=== PATIENT | male | born 1955 | race Caucasian/White ===

== ENCOUNTER 2025-03-11 10:23 | Inpatient (IN) ==
--- NOTE | 2025-03-11 11:27 | Emergency Department Note ---
Impression & Plan Abscess of right hand, Tenosynovitis, Cat bite, Failure of outpatient treatment ED Provider Note NAME: RY GIRON AGE: 69 SEX: M : 1955 ARRIVES VIA: Walk-In INFORMANT: [Patient] ED PROVIDER(S): [Kurt Power MD] CHIEF COMPLAINT: Hand pain HISTORY OF PRESENT ILLNESS: The patient is a 69-year-old male who states that 9 days ago, he was bitten by a cat along the dorsum of the right hand. [facility] went to [facility] and was placed on Augmentin and given a tetanus booster. The 1 area of the bite has cleared up nicely however, the right fourth dorsal MCP region is draining puslike material and is erythematous. There is some pain with movement of the fourth MCP and with extension of the fourth finger. The patient went to the [facility] today, he was referred to our ER. There has been no fever, no cough or congestion. The patient is not a diabetic. PMHx/PSHx/Social Hx: See Below PHYSICAL EXAM: GENERAL: Patient is in no acute distress. HEENT: No acute trauma, normocephalic atraumatic, mucous membranes moist, no nasal congestion. EXTREMITIES: No cyanosis. The patient has erythema and swelling over the dorsal fourth MCP. There is an open lesion that is draining puslike material. There is some pain to move the fourth MCP joint and to extend the right fourth finger. No evidence for distal right fourth finger neurovascular compromise. NEUROLOGIC: Oriented x 3, no acute motor or sensory deficits, no focal weakness. DIFFERENTIAL DIAGNOSIS: Abscess, septic joint, tenosynovitis, failed outpatient management, among others. EMERGENCY DEPARTMENT PROCEDURES: MEDICAL DECISION MAKING: There is a mild leukocytosis, this would be consistent with infection. There is a normal hemoglobin and platelet count. No true bandemia. No renal failure or significant electrolyte abnormality. No concerning liver enzyme elevation. Right hand CT shows a 5 cm abscess and what appeared to be a tenosynovitis. On exam, there was erythema of the right fourth MCP with some drainage. A culture was obtained. The patient received IV Unasyn as antibiotic therapy. I spoke to orthopedics. The patient will be hospitalized for IV antibiotic therapy and an OR washout this evening. He is to be n.p.o. until this evening. I did speak with the patient and case management. The on-call hospitalist was consulted. Prior/Outside records/notes reviewed: None Imaging/x-ray results per my interpretation: Chronic Medical/Social conditions affecting care: None Care/Management discussed with: Orthopedics-Dr. Ashford. Case management and the on-call hospitalist. Level of care consideration(s): After review of the information above and other included data: --I believe the patient requires escalation of care to admission DISPOSITION: Admission Past Med/Surg History Problem List (Updated 03/11/25 @ 13:58 by Kurt Power MD) Failure of outpatient treatment (Acute) Cat bite (Acute) Tenosynovitis (Acute) Abscess of right hand (Acute) Abscess of right hand Cellulitis of right hand Medical History Cat bite Social History Smoking Status: Never smoker Preferred Language: Trinidadian Feels Safe at Home: Yes Allergies Allergies Allergy/AdvReac Type Severity Reaction Status Date / Time No Known Allergies Allergy Unknown Unverified 10/07/07 09:19 Home Meds Home Medications Medication Instructions Recorded Confirmed Bupropion (Wellbutrin Sr) 150 mg PO DAILY ##0 10/07/07 Hydrocodone/Ibuprofen (Vicoprofen 1 tab PO 4HRS ##0 10/07/07 7.5/200MG ) Lisinopril (Zestril) 20 mg PO DAILY ##0 10/07/07 Results & Data (ED) Vital Signs Vital Signs - 24 hr 03/11/25 10:38 03/11/25 12:13 Temperature 36.4 C L Temperature Source Skin Pulse Rate 73 Pulse Rate [Finger] 69 Respiratory Rate 17 18 Respiratory Effort / Characteristics Non-Labored Spontaneous Non-Labored Spontaneous Respiratory Depth Normal Normal Respiratory Pattern Regular Regular Blood Pressure 107/65 Blood Pressure [Right Arm] 117/79 Blood Pressure Mean 79 Blood Pressure Mean [Right Arm] 91 Blood Pressure Position [Right Arm] Sitting Pulse Oximetry 97 97 Oxygen Delivery Method Room Air Room Air Sepsis Recent Fever Within 48 Hours No Sepsis New/Unexplained Change in Mental Status N/A Sepsis Action Taken by Nursing No Action Required Home Medications Current Medication List: was personally reviewed by me Laboratory Data Attestation: I reviewed the patient's lab results. 03/11/25 11:32 03/11/25 11:32 Lab Results 03/11/25 Range/Units 11:32 WBC 13.58 H (4.8-10.8) K/ul RBC 4.40 L (4.70-6.10) M/uL Hgb 14.7 (14.0-18.0) g/dl Hct 43.0 (42.0-52.0) % MCV 97.7 (80.0-100.0) fL MCH 33.4 (25.0-34.0) pg MCHC 34.2 (32.0-36.0) g/dL RDW Std Deviation 44.3 (36.4-46.3) fL RDW Coeff of Steve 12.2 (11.5-14.5) % Plt Count 301 (130-400) K/uL MPV 9.6 (9.4-12.4) fL Immature Gran % (Auto) 0.4 % Neut % (Auto) 67.1 % Lymph % (Auto) 17.7 % Clinton % (Auto) 7.1 % Eos % (Auto) 7.4 % Baso % (Auto) 0.3 % Neut # (Auto) 9.11 H (1.40-6.50) K/uL Lymph # (Auto) 2.41 (1.20-3.40) K/uL Clinton # (Auto) 0.97 H (0.11-0.59) K/uL Eos # (Auto) 1.00 H (0.00-0.50) K/uL Baso # (Auto) 0.04 (0.00-0.20) K/uL Immature Gran # (Auto) 0.05 (0.01-0.20) K/uL Sodium 137 (136-145) mmol/L Potassium 3.9 (3.5-5.1) mmol/L Chloride 103 (98-107) mmol/L Carbon Dioxide 30 (21-32) mmol/L Anion Gap 4 (3-11) BUN 14 (6-23) mg/dl Creatinine 0.89 (0.6-1.4) mg/dl Est Cr Clr Drug Dosing 80.6 ml/min eGFR 92.76 BUN/Creatinine Ratio 15.7 (10-20) Glucose 92 (70-99(Fasting)) mg/dl Calcium 9.3 (8.6-10.3) mg/dl Total Bilirubin 0.5 (0.2-1.0) mg/dl AST 20 (13-39) U/L ALT 12 (7-52) U/L Alkaline Phosphatase 83 (34-104) U/L Total Protein 6.9 (6.0-8.3) gm/dl Albumin 3.9 (3.4-5.0) gm/dl Globulin 3.0 (2.5-4.0) gm/dl Albumin/Globulin Ratio 1.3 (0.9-2) Administered Medications Discontinued Medications Ampicillin Sodium/Sulbactam Sodium (Unasyn) 3,000 mg in 100 mls @ 200 mls/hr IV NOW STA Stop: 03/11/25 11:52 Last Infusion: 03/11/25 12:12 Dose: Infused Documented By: Admin: 03/11/25 11:35 Dose: 200 mls/hr Documented By: TEGAN Ioversol (Optiray 320 100ml) 94 ml IV ONCE ONE Stop: 03/11/25 12:27 Last Admin: 03/11/25 12:26 Dose: 94 ml Documented By: MAME Imaging Data Radiologist's Impression: Hand CT 03/11/25 11:23 CT hand RT w con HISTORY: 69 years-old Male poss abscess dorsal 4th mcp acute right hand pain with possible soft tissue infection and abscess COMPARISON: None TECHNIQUE: Multiple axial CT images of the right hand were obtained with IV contrast. A dose lowering technique was used consistent with the principals of JOE. FINDINGS: Multifocal osteoarthritis, severe within the first carpal metacarpal joint in otherwise predominantly mild to moderate. Healed chronic chest metacarpal fracture deformity. No acute fracture, dislocation or osseous erosion. Tendons and ligaments are not well evaluated by CT technique. Moderate subcutaneous edema is most pronounced dorsally. Ill-defined peripherally enhancing fluid collection is noted along the dorsal aspect of the fourth metacarpal and fourth metacarpophalangeal joint (image 25 series 3 image 64 series 303) measuring 2.0 x 0.8 x 5.0 cm. This appears to involve the fourth extensor compartment. IMPRESSION: 1. Cellulitis with 5 cm probable abscess of the dorsal hand with involvement of the fourth extensor compartment suggestive of associated infectious tenosynovitis. 2. Osteoarthritis without acute osseous abnormality. ACT 112: Negative or not required by law. The above report was generated using voice recognition software. It may contain grammatical, syntax or spelling errors. Electronically signed by: Mendez Avitia M.D. 03/11/2025 1:07 PM Discharge Plan Visit Data Chief Complaint: Hand Injury/Pain Stated Complaint: BIT BY CAT ON R HAND 1 WK AGO ED Provider: Kurt Power Discharge Problem: Abscess of right hand, Tenosynovitis, Cat bite, Failure of outpatient treatment Patient Disposition: Admitted As Inpatient Condition: Good Forms Stand Alone Forms: My [facility] Referrals Referrals: Kelechi Driver M.D. [Staff Physician] - Discharge Problem: Cat bite Qualifiers: Encounter type: subsequent encounter Qualified Code(s): W55.01XD - Bitten by cat, subsequent encounter
[2025-03-11] MEDS: AMPICILLIN/SULBACTAM SOD 3,000 MG/100 ML BAG IV STA (11:35)
[2025-03-11 11:56] LABS: Hematocrit (blood only) 43.0 % (42.0-52.0); Hemoglobin 14.7 g/dl (14.0-18.0); Immature Granulocytes # (auto) 0.05 K/uL (0.01-0.20); Immature Granulocytes % (auto) 0.4 %; Mean Corpuscular Hemoglobin 33.4 pg (25.0-34.0); Mean Corpuscular Volume 97.7 fL (80.0-100.0); Platelet Count 301 K/uL (130-400); RDW Standard Deviation 44.3 fL (36.4-46.3); Red Blood Count 4.40 M/uL (4.70-6.10); White Blood Count 13.58 K/ul (4.8-10.8)
[2025-03-11 12:17] LABS: Alanine Aminotransferase 12.0 U/L (7-52); Albumin Globulin Ratio 1.3 (0.9-2); Albumin Level 3.9 gm/dl (3.4-5.0); Alkaline Phosphatase 83.0 U/L (34-104); Anion Gap 4.0 (3-11); Bilirubin,Total 0.5 mg/dl (0.2-1.0); Blood Urea Nitrogen 14.0 mg/dl (6-23); Calcium 9.3 mg/dl (8.6-10.3); Carbon Dioxide 30.0 mmol/L (21-32); Chloride 103.0 mmol/L (98-107); Creatinine Clr Calc Pharmacy 80.6 ml/min; Globulin 3.0 gm/dl (2.5-4.0); Glucose 92.0 mg/dl (70-99(Fasting)); Potassium 3.9 mmol/L (3.5-5.1); Sodium 137.0 mmol/L (136-145); Total Protein 6.9 gm/dl (6.0-8.3)
[2025-03-11] MEDS: OPTIRAY 320 100ml IV ONE (12:26)
--- NOTE | 2025-03-11 13:09 | CT Scan Report ---
CT hand RT w con HISTORY: 69 years-old Male poss abscess dorsal 4th mcp acute right hand pain with possible soft tiss ue infection and abscess COMPARISON: None TECHNIQUE: Multiple axial CT images of the right hand were obtained with IV contrast. A dose lowering technique was used consistent with the principals of JOE. FINDINGS: Multifocal osteoarthritis, severe within the first carpal metacarpal joint in otherwise predominantly mild to moderate. Healed chronic chest metacarpal fracture deformity. No acute fracture, dislocation or osseous erosion. Tendons and ligaments are not well evaluated by CT technique. Moderate subcutaneous edema is most pro nounced dorsally. Ill-defined peripherally enhancing fluid collection is noted along the dorsal aspec t of the fourth metacarpal and fourth metacarpophalangeal joint (image 25 series 3 image 64 series 30 3) measuring 2.0 x 0.8 x 5.0 cm. This appears to involve the fourth extensor compartment. IMPRESSION: 1. Cellulitis with 5 cm probable abscess of the dorsal hand with involvement of the fourth extensor c ompartment suggestive of associated infectious tenosynovitis. 2. Osteoarthritis without acute osseous abnormality. ACT 112: Negative or not required by law. The above report was generated using voice recognition software. It may contain grammatical, syntax o r spelling errors. Electronically signed by: Mendez Avitia M.D. 03/11/2025 1:07 PM
--- NOTE | 2025-03-11 13:33 | Anesthesiology Consultation ---
Date of Service March 11, 2025 Assessment & Plan Chart Review Chart Review: Acceptable Risk for Surgery and Patient NOT seen in Pre Admission Testing Consults Requested none ASA [id number] Proposed Anesthesia Anesthesia Type: General History Surgery Operation Date: 03/11/25 12:00 Proposed Procedures p Right Hand Incision and Drainage - Huber Ashford DO Height/Weight Height: 5 ft 4 in Weight: 93 kg Allergies Allergy/AdvReac Type Severity Reaction Status Date / Time No Known Allergies Allergy Unknown Unverified 10/07/07 09:19 Medications Home Medications Medication Instructions Recorded Confirmed Last Taken Bupropion (Wellbutrin Sr) 150 mg PO DAILY ##0 10/07/07 Unknown Hydrocodone/Ibuprofen (Vicoprofen 1 tab PO 4HRS ##0 10/07/07 Unknown 7.5/200MG ) Lisinopril (Zestril) 20 mg PO DAILY ##0 10/07/07 Unknown Past Medical History obese KEVIN HTN PTSD Anxiety/Depression HLD Exercise / Class Metabolic Activity II 4-5 Yardwork/Stairs/Walk up hill Past Anesthesia History No Hx of Anesthesia Complications and No Family Hx of Anesthesia Complications History of PONV No Hx of PONV and No Hx of Motion Sickness Social History Smoking Status: Never smoker Physical Exam Vital Signs Last Vital Signs Temp 36.4 C L 03/11/25 10:38 Pulse 69 03/11/25 12:13 Resp 18 03/11/25 12:13 BP 117/79 03/11/25 12:13 Pulse Ox 97 03/11/25 12:13 O2 Del Method Room Air 03/11/25 12:13 Testing Laboratory Results 03/11/25 11:32 03/11/25 11:32 03/11/25 Unknown Gram Stain - Final Hand,Right
--- NOTE | 2025-03-11 13:35 | History & Physical Report ---
Date of Service March 11, 2025 Assessment & Plan (1) Cellulitis of right hand: (2) Abscess of right hand: (3) Cat bite: Plan: Patient is 69-year-old male with PMH HTN, HLD, prediabetes, reactive airway, KEVIN, PTSD, chronic pain, obesity presented to ER with c/o Right hand redness. Patient reports his cat bite his right hand 9 days ago, failed outpatient course of Augmentin In ER afebrile, vital stable. WBC: 13.5 with left shift Right CT hand: 1. Cellulitis with 5 cm probable abscess of the dorsal hand with involvement of the fourth extensor compartment suggestive of associated infectious tenosynovitis. 2. Osteoarthritis without acute osseous abnormality. In ER given Unasyn Wound culture pending Keep NPO for likely surgical procedure later today Ortho consult, ER physician spoke to Dr Ashford who recommended NPO for OR later today CBC, BMP in am (4) HTN (hypertension): Plan: Hold tomorrow dose HCTZ. Resume if BP allows Continue amlodipine, lisinopril, metoprolol tartrate with holding parameters (5) HLD (hyperlipidemia): Plan: Continue atorvastatin (6) Reactive airway disease: Plan: No signs exacerbation Continue home inhalers (7) KEVIN (obstructive sleep apnea): Plan: CPAP HS (8) Chronic pain: Plan: Continue gabapentin, baclofen DVT Prophylaxis SCDs for now as pending surgery Admit med surg Full Code as per discussion with pt Follows with [facility] for routine care Pt was seen and care coordinated with Dr Gomez. See addendum I spent a total of 65 minutes reviewing notes, outpatient records, labs, medication, coordinating, documenting and providing care for this patient excluding time spent in the performance of separately billed services and excluding time spent by another provider/QHP. History of Present Illness Primary Care Provider: Marc Nieto DO Patient is 69-year-old male with PMH HTN, HLD, prediabetes, reactive airway, KEVIN, PTSD, chronic pain, obesity presented to ER with c/o Right hand redness. Patient reports his cat bite his right hand 9 days ago. Reports was seen at [facility] 8 days ago and started on Augmentin. He states he filled out animal bite form there. He reports his cat up to date on vaccines. He states his tetanus booster was updated 8 days ago. Patient reports hand does not seem to be improving and having pain, redness and noted purulent drainage. Last ate yesterday afternoon. Did not have home meds today. Denies fever/chills, diaphoresis, N/V/D/C, SEGUNDO, dizziness, CP, SOB, cough, sore throat, rhinorrhea, abdominal pain, paresthesias, lower extremity edema, other rashes, urinary symptoms. Allergies Allergy/AdvReac Type Severity Reaction Status Date / Time No Known Allergies Allergy Unknown Unverified 10/07/07 09:19 Home Medications Medication Instructions Recorded Confirmed Type albuterol sulfate 90 mcg/actuation 2 puff inhalation Q4H PRN 03/11/25 03/11/25 History aerosol inhaler sob/cough/wheeze amlodipine 2.5 mg tablet 2.5 mg PO DAILY 03/11/25 03/11/25 History aripiprazole 5 mg tablet 5 mg PO HS 03/11/25 03/11/25 History aspirin 81 mg tablet,delayed 81 mg PO DAILY 03/11/25 03/11/25 History release atorvastatin 80 mg tablet 80 mg PO HS 03/11/25 03/11/25 History baclofen 10 mg tablet 10 mg PO HS 03/11/25 03/11/25 History carboxymethylcellulose sodium 0.5 1 drp ophthalmic (eye) BID 03/11/25 03/11/25 History % eye drops cholecalciferol (vitamin D3) 25 25 mcg PO DAILY 03/11/25 03/11/25 History mcg (1,000 unit) tablet cyanocobalamin (vitamin B-12) 1,000 mcg IM MONTHLY 03/11/25 03/11/25 History 1,000 mcg/mL injection solution diclofenac sodium 1 % topical gel 2 g topical QID 03/11/25 03/11/25 History donepezil 5 mg tablet 5 mg PO BID 03/11/25 03/11/25 History doxylamine succinate 25 mg tablet 25 mg PO HS PRN Sleep 03/11/25 03/11/25 History fish oil-dha-epa 1,000 mg PO DAILY 03/11/25 03/11/25 History fluticasone 500 mcg-salmeterol 50 1 inh inhalation BID 03/11/25 03/11/25 History mcg/dose blistr powdr for inhalation fluticasone propionate 50 2 spray intranasal DAILY 03/11/25 03/11/25 History mcg/actuation nasal spray,suspension gabapentin 300 mg capsule 300 mg PO BID 03/11/25 03/11/25 History gabapentin 300 mg capsule 600 mg PO HS 03/11/25 03/11/25 History hydrochlorothiazide 25 mg tablet 12.5 mg PO DAILY 03/11/25 03/11/25 History lisinopril 40 mg tablet 40 mg PO DAILY 03/11/25 03/11/25 History meloxicam 15 mg tablet 15 mg PO DAILY PRN Other 03/11/25 03/11/25 History metoprolol tartrate 25 mg tablet 12.5 mg PO BID 03/11/25 03/11/25 History multivitamin 1 tab PO DAILY 03/11/25 03/11/25 History prazosin 1 mg capsule 1 mg PO HS 03/11/25 03/11/25 History semaglutide (weight loss) 1.7 1.7 mg subcut Q7D 03/11/25 03/11/25 History mg/0.75 mL subcutaneous pen injector terbinafine HCl 1 % topical cream 1 applic topical BID 03/11/25 03/11/25 History triamcinolone acetonide 0.025 % 1 applic topical UD PRN Other 03/11/25 03/11/25 History topical cream urea 20 % topical cream 1 applic topical DAILY PRN Dry Skin 03/11/25 03/11/25 History venlafaxine 75 mg tablet 225 mg PO DAILY 03/11/25 03/11/25 History Past Med/Surg History Problem List Failure of outpatient treatment (Acute) Cat bite (Acute) Tenosynovitis (Acute) Abscess of right hand (Acute) Abscess of right hand Cellulitis of right hand Medical History PTSD (post-traumatic stress disorder) Chronic pain KEVIN (obstructive sleep apnea) Reactive airway disease HLD (hyperlipidemia) HTN (hypertension) Cat bite Surgical History History of cataract surgery History of surgery right index finger surgery Family History Brother Cancer Social History Smoking Status: Never smoker Hx Alcohol Use: No Hx Substance Use: No Preferred Language: Portuguese Communication Ability: Effective Equal Opportunity Specialist Required: No Beliefs That Will Affect Care: None Current Living Situation: Spouse Feels Safe at Home: Yes Assistive Devices: Hearing Aid - Bilateral Review of Systems Review of Systems: All systems reviewed & are unremarkable except as noted in HPI & below Physical Exam Physical Exam: General: no distress, obese Head: normocephalic, atraumatic Eyes: conjunctiva non-injected, anicteric ENT: normal inspection external ears, nose, mucous membranes moist Neck: supple, trachea midline, non-tender Lungs: clear, no respiratory distress, no wheezing/rhonchi/rales CV: RRR, no murmur, no pretibial edema Abd: normal BS, soft, non-tender Ext: no cyanosis, no calf tenderness. Right hand/fingers : +erythema and edema dorsal hand and 4th finger. +open wound purulent drainage with palpation. Neuro: A&O x 3, no focal deficits noted, normal affect Skin: as above ext, otherwise warm, dry Results & Data Results & Data Vital Signs (Past 12 Hours) Vital Signs Temp Pulse Pulse Resp BP BP Pulse Ox 03/11/25 12:13 69 18 117/79 97 03/11/25 10:38 36.4 C L 73 17 107/65 97 O2 Del Method 03/11/25 12:13 Room Air 03/11/25 10:38 Room Air Laboratory Results Short CBC 03/11/25 Range/Units 11:32 WBC 13.58 H (4.8-10.8) K/ul Hgb 14.7 (14.0-18.0) g/dl Hct 43.0 (42.0-52.0) % Plt Count 301 (130-400) K/uL BMP 03/11/25 11:32 Sodium 137 Potassium 3.9 Chloride 103 Carbon Dioxide 30 BUN 14 Creatinine 0.89 Glucose 92 Calcium 9.3 Liver Function 03/11/25 Range/Units 11:32 Total Bilirubin 0.5 (0.2-1.0) mg/dl AST 20 (13-39) U/L ALT 12 (7-52) U/L Alkaline Phosphatase 83 (34-104) U/L Albumin 3.9 (3.4-5.0) gm/dl Diagnostic Findings Hand CT 03/11/25 11:23 CT hand RT w con HISTORY: 69 years-old Male poss abscess dorsal 4th mcp acute right hand pain with possible soft tissue infection and abscess COMPARISON: None TECHNIQUE: Multiple axial CT images of the right hand were obtained with IV contrast. A dose lowering technique was used consistent with the principals of JOE. FINDINGS: Multifocal osteoarthritis, severe within the first carpal metacarpal joint in otherwise predominantly mild to moderate. Healed chronic chest metacarpal fracture deformity. No acute fracture, dislocation or osseous erosion. Tendons and ligaments are not well evaluated by CT technique. Moderate subcutaneous edema is most pronounced dorsally. Ill-defined peripherally enhancing fluid collection is noted along the dorsal aspect of the fourth metacarpal and fourth metacarpophalangeal joint (image 25 series 3 image 64 series 303) measuring 2.0 x 0.8 x 5.0 cm. This appears to involve the fourth extensor compartment. IMPRESSION: 1. Cellulitis with 5 cm probable abscess of the dorsal hand with involvement of the fourth extensor compartment suggestive of associated infectious tenosynovitis. 2. Osteoarthritis without acute osseous abnormality. ACT 112: Negative or not required by law. The above report was generated using voice recognition software. It may contain grammatical, syntax or spelling errors. Electronically signed by: Mendez Avitia M.D. 03/11/2025 1:07 PM Supervising Physician Co-Signing Physician Notes Attending addendum: The patient was seen and examined in medical floor in presence of the family members He is status post right hand incision and drainage right hand with history of cat bite 9 days ago with abscess formation He has been feeling much better following the procedure and complains of minimal pain Denies any other significant symptoms On examination Lying in bed without any acute distress Afebrile and remains hemodynamically stable. Chestclear to auscultate bilaterally HeartS1-S2 regular Abdomenbenign Extremitiesno edema Examination of the right upper extremity showed left hand is in bandages with good sensation and fingers and can move the fingers His admission labs and imaging studies reviewed Noted to have cellulitis with 5 cm abscess without any evidence of osteomyelitis but showed tenosynovitis Status post I&D and has been on intravenous antibiotic-advised to keep the right upper extremity specially right hand elevated over heart level with possible His other medical conditions remained stable as mentioned above Agree with assessment plan as outlined above by Carlotta Rizzo PA-C and take the full responsibility of care in the hospital Dr Leno Gomez
[2025-03-11] MEDS ORDERED: LACTATED RINGER'S 1,000 ML IV STA (13:43)
--- NOTE | 2025-03-11 13:47 | Orthopedic Consultation ---
Date of Consultation March 11, 2025 Assessment & Plan (1) Abscess of right hand: (2) Cat bite: (3) Cellulitis of right hand: Plan this is a 69-year-old gentleman who presents today for evaluation of his right hand. The patient sustained a cat bite about a week and a half ago. He has been on oral antibiotics and doing local wound care, however the patient's wound has failed to heal. At this time, the patient has a abscess noted on the dorsum of his hand with concern for potential MP joint septic arthritis. I do long discussion with patient regarding his current presentation. We discussed in great detail the pathoanatomy, pathophysiology, treatment options. Given the fact the patient is failed oral outpatient antibiotics, and due to concern for developing septic arthrosis of his ring finger MP joint, my recommendation at this time is for operative management. My recommendation is for irrigation and debridement of the dorsal abscess with the evaluation and irrigation debridement of the MP joint. we discussed in great detail the risk, benefits, alternatives to surgery. The patient understands the risks include but are not limited to loss of life/limb/finger, DVT, PE, continued infection, need for additional surgery, iatrogenic injury to bone/nerve/tendon/vessel, need for additional surgery, need for soft tissue coverage in the future, stiffness of the digit. The alternative would be for IV antibiotics and continued observation, however given the patient's prolonged period of time since the bite as well as the abscess appreciated, I do think that formal operative irrigation and debridement is necessary. After being apprised of the risk, benefits, terms to surgery, the patient is interested in pursuing operative care. He has been n.p.o. since last evening with the exception of a small glass of water this morning. He will be admitted to the medical team. I have ordered an ESR and CRP in order to trend as we move forward. Please keep patient n.p.o. for now. Will proceed to the operating room pending OR availability. History of Present Illness Reason for Consultation: Right hand infection History of Present Illness 69-year-old gentleman with past medical history of HTN, HLD, prediabetes, reactive airway, KEVIN, PTSD, chronic pain, obesity. Patient presents to the emergency department today for evaluation of his right hand. About a week and a half ago, the patient was bit by a cat. He immediately cleansed the wound and went to an urgent care facility where he was provided with oral antibiotics. He has been watching the wound closely, however over the course of the last day or so it has gotten increasing redness and swelling. He has also started to notice purulent he denies fevers or chills at current. He denies any pain on the palmar aspect of his hand. The only area of pain is dorsally over his fourth MTP joint. Allergies Allergy/AdvReac Type Severity Reaction Status Date / Time No Known Allergies Allergy Unknown Unverified 10/07/07 09:19 Patient History Social History Smoking Status: Never smoker Preferred Language: French Feels Safe at Home: Yes Review of Systems Review of Systems: All systems reviewed & are unremarkable except as noted in HPI & below Physical Exam Physical Exam: On physical examination, the patient has dorsal cellulitis and soft tissue swelling centered around his ring finger MTP joint. There is a small wound noted on the ulnar aspect of the MP joint that when squeezed does express a purulent material. Patient has no fusiform swelling of the digit. He has no tenderness over the flexor tendon sheath. He has no flexed posturing. He has no palmarpain with passive extension of the digit. He does have mild pain dorsally with motion of the digit. Results & Data Vital Signs (Past 12 Hours) Vital Signs Temp Pulse Pulse Resp BP BP Pulse Ox 03/11/25 12:13 69 18 117/79 97 03/11/25 10:38 36.4 C L 73 17 107/65 97 O2 Del Method 03/11/25 12:13 Room Air 03/11/25 10:38 Room Air Diagnostic Findings White blood cell count 13.58 I have ordered ESR and CRP and these labs values are pending.
[2025-03-11] MEDS: LACTATED RINGER'S 1,000 ML IV STA (14:05)
[2025-03-11] MEDS ORDERED: PROPOFOL IV EMULSION 10 MG/ML 20 ML VIAL IV ONE (14:07)
[2025-03-11] MEDS ORDERED: LIDOCAINE 2% 2 ML VIAL/AMP(20MG/ML) INFIL ONE (14:07)
[2025-03-11] MEDS ORDERED: ONDANSETRON INJ 2 MG/ML 2 ML VIAL ONE (14:07)
[2025-03-11] MEDS ORDERED: DEXAMETHASONE SOD INJ 4 MG/ML VIAL ONE (14:07)
[2025-03-11] MEDS ORDERED: MIDAZOLAM HCL 1 MG/ML 2ML VIAL ONE (14:07)
[2025-03-11] MEDS ORDERED: ONDANSETRON INJ 2 MG/ML 2 ML VIAL IV PRN ×2 (14:16→18:07)
[2025-03-11] MEDS ORDERED: PROMETHAZINE HCL 6.25 MG in SODIUM CHLORIDE 0.9% 50 ML IV PRN (14:16)
[2025-03-11] MEDS ORDERED: FLUMAZENIL 0.1 MG/1 ML 10 ML VIAL IV PRN (14:16)
[2025-03-11] MEDS ORDERED: NALOXONE HCL 0.4 MG/1 ML VIAL/CARP IV PRN (14:16)
[2025-03-11] MEDS ORDERED: HYDROmorphone INJ 1 MG/ML SYRINGE IV PRN (14:16)
[2025-03-11] MEDS ORDERED: ATROPINE SULFATE 0.1 MG/ML 10ML SYR IV PRN (14:16)
--- NOTE | 2025-03-11 14:16 | Communication Note ---
Date of Service: March 11, 2025 03/11/2025-EKG-SR @ 80 w/ PAC's;proonged QT
[2025-03-11] MEDS ORDERED: KETOROLAC 30 MG/ML VIAL ONE (14:55)
[2025-03-11] MEDS: VANCOMYCIN HCL 1000MG/20ML VIAL ONE (15:10)
--- NOTE | 2025-03-11 15:38 | Post Operative Brief Note ---
Immediate Post Op Note Date of Surgery March 11, 2025 Pre & Post Diagnosis Operation Date: 03/11/25 12:00 Pre-Op Diagnosis: Right hand abscess, cellulitis Post-Op Diagnosis: Right hand abscess, cellulitis; Extensor tendon rupture I identified the patient and participated in the time-out.: Yes Procedure Operation Date: 03/11/25 12:00 Actual Procedures p Right Hand Incision and Debridement Metacarpal Phalangeal Joint Septic Arthritis(Right) - Huber Ashford DO Surgeon Huber Ashford DO Security Sme none Estimated Blood Loss 10 Findings See Below intraoperatively it was discovered that the patient's infection had caused a rupture of the ring finger extensor tendon. intraoperatively I did call my Hand Surgery colleague, Dr Capone who notes that given the chronicity of the injury, placing repair sutures at this time would be inadvisable and instead a delayed reconstruction would be more appropriate. Disposition Disposition: Recovery Room Overlapping Procedure I was present for: the critical portions of procedure. (the entire case)
--- NOTE | 2025-03-11 15:41 | Electrocardiogram Report ---
Test Reason : Blood Pressure : */* mmHG Vent. Rate : 80 BPM Atrial Rate : 80 BPM P-R Int : 164 ms QRS Dur : 84 ms QT Int : 426 ms P-R-T Axes : 27 -7 29 degrees QTcB Int : 491 ms Sinus rhythm with Premature atrial complexes Prolonged QT Abnormal ECG No previous ECGs available Confirmed by Raciel Ashford ([id number]) on 03/11/2025 3:41:34 PM Referred By: REFERRED SELF Confirmed By: Raciel Ashford
--- NOTE | 2025-03-11 16:26 | Anesthesiology Progress Note ---
Date of Service March 11, 2025 Anesthesia Post Procedure Vital Signs Vital Signs: Temp Pulse Pulse Pulse Resp BP BP 03/11/25 16:10 85 24 132/96 03/11/25 16:00 36.4 C L 84 22 135/90 03/11/25 15:50 85 22 128/92 03/11/25 15:40 85 20 150/90 H 03/11/25 15:33 36.1 C L 93 H 16 147/105 H 03/11/25 14:06 36.7 C 80 20 134/104 H 03/11/25 13:51 83 16 137/87 03/11/25 12:13 69 18 117/79 03/11/25 10:38 36.4 C L 73 17 107/65 Pulse Ox O2 Del Method O2 Flow Rate 03/11/25 16:10 94 Room Air 03/11/25 16:00 94 Room Air 03/11/25 15:50 96 Room Air 03/11/25 15:40 98 Oxymask 03/11/25 15:33 94 Oxymask 03/11/25 14:06 95 Room Air 03/11/25 13:51 97 Room Air 03/11/25 12:13 97 Room Air 03/11/25 10:38 97 Room Air Transfer of Care Handoff Completed per policy Notes Mental Status: alert / awake / arousable Patient Amnestic to Procedure: Yes Nausea / Vomiting: adequately controlled Pain: adequately controlled Airway Patency, RR, SpO2: stable & adequate BP & HR: stable & adequate Hydration State: stable & adequate Anesthetic Complications: no major complications apparent
[2025-03-11] MEDS ORDERED: MoRPHine SULFATE 4 MG/ML 1 ML CARP\\VIAL IV PRN (18:07)
[2025-03-11] MEDS ORDERED: ACETAMINOPHEN 325 MG TAB PO PRN (18:07)
[2025-03-11] MEDS ORDERED: POLYETHYLENE (MIRALAX) 17 GM PACK PO PRN (18:07)
[2025-03-11] MEDS ORDERED: MAGNESIUM HYDROXIDE SUSP 30 ML UDC PO PRN (18:07)
--- NOTE | 2025-03-11 19:51 | Operative Report ---
Post Operative Report Pre & Post Diagnosis Operation Date: 03/11/25 12:00 Pre-Op Diagnosis: 1. Right hand abscess, cellulitis Post-Op Diagnosis: 1. Right hand abscess, cellulitis; 2. Right ring finger extensor tendon rupture I identified the patient and participated in the time-out.: Yes Procedure Operation Date: 03/11/25 12:00 Actual Procedures p Right Hand Incision and Debridement Metacarpal Phalangeal Joint Septic Arthritis(Right) - Huber Ashford DO Surgeon Huber Ashford DO Composition Tile Layer none Estimated Blood Loss 10 Findings See Below Intraoperatively it was discovered that the patient's infection had caused a rupture of the ring finger extensor tendon. intraoperatively I did call my Hand Surgery colleague, Dr Capone who notes that given the chronicity of the injury, placing repair sutures at this time would be inadvisable and instead a delayed reconstruction would be more appropriate. Specimens Two specimens, 1 swab and 1 tissue culture sent for culture and gram stain Anesthesia Type General Indications This is a 69-year-old gentleman who presents today for evaluation of his right hand. The patient sustained a cat bite about a week and a half ago. He has been on oral antibiotics and doing local wound care, however the patient's wound has failed to heal. At this time, the patient has a abscess noted on the dorsum of his hand with concern for potential MP joint septic arthritis. I do long discussion with patient regarding his current presentation. We discussed in great detail the pathoanatomy, pathophysiology, treatment options. Given the fact the patient is failed oral outpatient antibiotics, and due to concern for developing septic arthrosis of his ring finger MP joint, my recommendation at this time is for operative management. My recommendation is for irrigation and debridement of the dorsal abscess with the evaluation and irrigation debridement of the MP joint. we discussed in great detail the risk, benefits, alternatives to surgery. The patient understands the risks include but are not limited to loss of life/limb/finger, DVT, PE, continued infection, need for additional surgery, iatrogenic injury to bone/nerve/tendon/vessel, need for additional surgery, need for soft tissue coverage in the future, stiffness of the digit. The alternative would be for IV antibiotics and continued observation, however given the patient's prolonged period of time since the bite as well as the abscess appreciated, I do think that formal operative irrigation and debridement is necessary. After being apprised of the risk, benefits, terms to surgery, the patient is interested in pursuing operative care. Description of Procedure After informed consent was obtained, the patient was correctly identified in the preoperative holding suite, the operative site was marked with the surgeon's in itials, the date of surgery, and the word yes. The patient was then taken to the operative suite. The department of anesthesia administered General Anesthesia. The patient was transferred from the [facility] to the operative table. All bony prominences were well-padded. Briefing and timeout was performed. All implants were available and sterile at the time. BRIEFING AND DEBRIEFING: Pre and post operative briefing and debriefing was performed. Introductions were made, goals of the procedure were discussed, questions and concerns were addressed. The operative site markings were identified and appropriate. A time [id number] was performed, the patient's correct identity was confirmed and the correct operative sites were identified. The patients pre-operative antibiotic dosing and administration was confirmed along with other SCIP measures. The team was polled at the completion of the surgery and all team members were in agreement that the procedure was without complication, the counts are correct, the wound class was identified and suggestions for improvement were shared. patient was positioned supine on the operative table with all bony prominences well-padded. A well-padded tourniquet was placed high on the right upper extremity. The right upper extremity was prepped and draped in standard sterile fashion using Betadine scrub and paint. Without exsanguination, the tourniquet was raised to 250 mmHg. We began by making a dorsal approach utilizing the In the center of the incision. It was centered over the MP joint extending 2 cm distally and 2 cm proximally. The apex of the incision was over the ulnar aspect of the MP joint. We incised sharply through skin and subcutaneous tissue and immediately encountered a large abscess. At this point a swab was taken and sent for culture. We then continued exploring the wound and noted rather quickly that the patient's extensor tendon had completely ruptured due to the infection. at this point, I did phone my hand surgery colleague, Dr. Myrna Khan to ask his recommendations with regards to managing the extensor tendon rupture. Given the chronicity of the infection, his recommendation was to debride the nonviable tissue of the ends of the tendon with hopes of a later staged reconstruction due to the patient's infection. We proceeded based on his recommendations. Both ends of the tendon were clearly visible within the wound and beneath these there was a tract down to the MP joint. The abscess was then explored and noted to extend slightly radially and distally. At this point we then began sharply debriding all nonviable tissue down to the level of bone through our incision sharply using knife, tenotomy scissors, curette. Some of this tissue was collected and sent for culture and Gram stain as well. After adequate debridement, we began thorough irrigation of the wound and the MP joint ensuring to wash all areas of the abscess in all areas of the joint. A total of 9 L of sterile saline mixed with vancomycin was used for irrigation. Following irrigation, we inspected the wound and once again sharply debrided all nonviable tissue. At this point we are satisfied so we Began our closure. We would close the skin with 4-0 nylon in a vertical mattress fashion. We placed brown Steri-Strips between each suture, covered the wound with Betadine soaked Adaptic, 4 x 4's fluffs, sterile Webril. We then applied a AlumaFoam splint with the finger in extension. The patient tolerated this procedure well and was transferred to the PACU in stable condition. Prior to transportation to PACU, all counts were correct and a briefing was performed at the end of the case. I was present for the entire procedure. Plan: Weight bearing status: Nonweightbearing right hand Wound care: keep dressing clean and dry. Will change this dressing on postoperative day 2 Range of motion: keep AlumaFoam splint in place VTE Prophylaxis: per medical team, okay from an orthopedic standpoint to begin chemical prophylaxis Antibiotics: IV Unasyn for now, will be tailored once cultures are finalized Pain Control: Multimodal Discharge Plan: pending clinical course Follow Up: patient will follow-up with Dr. Myrna Khan upon discharge for discussion of staged reconstruction of his extensor tendon I attest to the content of the Intraoperative Record and any orders documented therein. Any exceptions are noted below.
[2025-03-11] MEDS: AMPICILLIN/SULBACTAM SOD 3,000 MG/100 ML BAG IV SCH (19:53)
[2025-03-11] MEDS: PRAZOSIN HCL 1 MG CAP PO SCH (22:37)
[2025-03-11] MEDS: ATORVASTATIN 40 MG TAB PO SCH (22:37)
[2025-03-11] MEDS: GABAPENTIN 300 MG CAP PO SCH (22:37)
[2025-03-11] MEDS: BACLOFEN 10 MG TAB PO SCH (22:37)
[2025-03-11] MEDS: METOPROLOL TARTRATE 25 MG TAB PO SCH (22:38)
[2025-03-11] MEDS: ARIPiprazole 5 MG TAB PO SCH (22:38)
[2025-03-11] MEDS: ARTIFICIAL TEARS OP SCH (22:41)
[2025-03-12 06:55] LABS: Hematocrit (blood only) 38.0 % (42.0-52.0); Hemoglobin 12.8 g/dl (14.0-18.0); Immature Granulocytes # (auto) 0.09 K/uL (0.01-0.20); Immature Granulocytes % (auto) 0.7 %; Mean Corpuscular Hemoglobin 32.4 pg (25.0-34.0); Mean Corpuscular Volume 96.2 fL (80.0-100.0); Platelet Count 279 K/uL (130-400); RDW Standard Deviation 43.5 fL (36.4-46.3); Red Blood Count 3.95 M/uL (4.70-6.10); White Blood Count 13.68 K/ul (4.8-10.8)
[2025-03-12 07:24] LABS: Anion Gap 9.0 (3-11); Blood Urea Nitrogen 18.0 mg/dl (6-23); Calcium 8.5 mg/dl (8.6-10.3); Carbon Dioxide 26.0 mmol/L (21-32); Chloride 102.0 mmol/L (98-107); Creatinine Clr Calc Pharmacy 74.7 ml/min; Glucose 109.0 mg/dl (70-99(Fasting)); Potassium 3.7 mmol/L (3.5-5.1); Sodium 137.0 mmol/L (136-145)
--- NOTE | 2025-03-12 08:00 | Orthopedic Progress Note ---
Date of Service March 12, 2025 Assessment & Plan (1) Abscess of right hand: (2) Cat bite: (3) Cellulitis of right hand: (4) Extensor tendon rupture of hand: Plan postoperative day #1 status post irrigation and debridement and exploration of right hand. During surgery, the patient was discovered to have an extensor tendon rupture. I did call and discussed this with my hand surgery colleague, Dr. Caopne. He recommended staged reconstruction in the future. With regards to the patient's hand during this admission, I will plan to change his dressing tomorrow. We will continue to follow cultures to determine appropriate antibiotic plan. Consider infectious disease consultation. Admission and Anticipated Discharge Date Admission Date: March 11, 2025 Subjective postoperative day #1 status post irrigation and debridement right dorsal hand abscess. Patient resting comfortably this morning. Notes no fevers or chills. No acute complaints this morning. Review of Systems Review of Systems: All systems reviewed & are unremarkable except as noted in HPI & below Physical Exam Physical Exam: Dressing clean dry and intact. Results & Data Vital Signs (Past 12 Hours) Vital Signs Temp Pulse Resp BP BP Pulse Ox O2 Del Method 03/12/25 03:15 36.9 C 74 16 98/63 L 92 Room Air 03/11/25 22:36 36.5 C 81 16 125/70 94 Room Air 03/11/25 20:42 36.6 C 80 18 103/72 94 Room Air
--- NOTE | 2025-03-12 08:52 | Hospitalist Progress Note ---
Date of Service March 12, 2025 Assessment & Plan (1) Cellulitis of right hand: (2) Abscess of right hand: (3) Cat bite: Plan: Patient is 69-year-old male with PMH HTN, HLD, prediabetes, reactive airway, KEVIN, PTSD, chronic pain, obesity presented to ER with c/o Right hand redness. Patient reports his cat bite his right hand 9 days ago, failed outpatient course of Augmentin In ER afebrile, vital stable. WBC: 13.5 with left shift Right CT hand: 1. Cellulitis with 5 cm probable abscess of the dorsal hand with involvement of the fourth extensor compartment suggestive of associated infectious tenosynovitis. 2. Osteoarthritis without acute osseous abnormality. In ER given Unasyn Wound culture pending Keep NPO for likely surgical procedure later today Ortho consult, ER physician spoke to Dr Ashford who recommended NPO for OR later today CBC, BMP in am 9/11 wound cultx positive for Pasteurella multocida - final results pending Pt is s/p I&D yesterday. Per orthopedics - postoperative day #1 status post irrigation and debridement and exploration of right hand. During surgery, the patient was discovered to have an extensor tendon rupture. I did call and discussed this with my hand surgery colleague, Dr. Capone. He recommended staged reconstruction in the future. With regards to the patient's hand during this admission, I will plan to change his dressing tomorrow. We will continue to follow cultures to determine appropriate antibiotic plan. Consider infectious disease consultation. (4) HTN (hypertension): Plan: Hold tomorrow HCTZ, lisinopril. Resume if BP allows Continue amlodipine, metoprolol tartrate with holding parameters (5) HLD (hyperlipidemia): Plan: Continue atorvastatin (6) Reactive airway disease: Plan: No signs exacerbation Continue home inhalers (7) KEVIN (obstructive sleep apnea): Plan: CPAP HS (8) Chronic pain: Plan: Continue gabapentin, baclofen DVT Prophylaxis SCDs for now as pending surgery Dispo: med surg Full Code as per discussion with pt Follows [facility] for routine care Admission and Anticipated Discharge Date Admission Date: March 11, 2025 Subjective Pt seen in follow up Postoperative day #1 status post irrigation and debridement right dorsal hand abscess. Patient resting comfortably this morning. Notes no fevers or chills. No acute complaints this morning. Overall feels well, denies any pain in the hand, says his hand did not really hurt prior to surgery but had visible pus drainage prior to surgery Review of Systems Review of Systems: All systems reviewed & are unremarkable except as noted in Subjective Physical Exam Physical Exam: General: no distress, obese M Head: normocephalic, atraumatic Eyes: conjunctiva non-injected, anicteric ENT: normal inspection external ears, nose, mucous membranes moist Neck: supple, non-tender Lungs: clear, no respiratory distress, no wheezing/rhonchi/rales CV: RRR, no murmur, no pretibial edema Abd: normal BS, soft, non-tender Ext: Right hand/fingers : +erythema and edema dorsal hand and 4th finger. +open wound purulent drainage with palpation.- per admitting provider, now s/p surgery, dressings clean dry/i Neuro: A&O x 3, no focal deficits noted, normal affect Skin: as above ext, otherwise warm, dry Results & Data Results & Data Vital Signs (Past 12 Hours) Vital Signs Temp Pulse Resp BP BP Pulse Ox O2 Del Method 03/12/25 08:04 36.5 C 80 16 104/70 96 Room Air 03/12/25 03:15 36.9 C 74 16 98/63 L 92 Room Air 03/11/25 22:36 36.5 C 81 16 125/70 94 Room Air Laboratory Results 03/12/25 03/11/25 03/11/25 Range/Units 06:01 11:32 11:32 WBC 13.68 H 13.58 H (4.8-10.8) K/ul RBC 3.95 L 4.40 L (4.70-6.10) M/uL Hgb 12.8 L 14.7 (14.0-18.0) g/dl Hct 38.0 L 43.0 (42.0-52.0) % MCV 96.2 97.7 (80.0-100.0) fL MCH 32.4 33.4 (25.0-34.0) pg MCHC 33.7 34.2 (32.0-36.0) g/dL RDW Std Deviation 43.5 44.3 (36.4-46.3) fL RDW Coeff of Steve 12.3 12.2 (11.5-14.5) % Plt Count 279 301 (130-400) K/uL MPV 9.8 9.6 (9.4-12.4) fL Immature Gran % (Auto) 0.7 0.4 % Neut % (Auto) 78.3 67.1 % Lymph % (Auto) 14.6 17.7 % Winkler % (Auto) 5.8 7.1 % Eos % (Auto) 0.4 7.4 % Baso % (Auto) 0.2 0.3 % Neut # (Auto) 10.72 H 9.11 H (1.40-6.50) K/uL Lymph # (Auto) 2.00 2.41 (1.20-3.40) K/uL Winkler # (Auto) 0.79 H 0.97 H (0.11-0.59) K/uL Eos # (Auto) 0.05 1.00 H (0.00-0.50) K/uL Baso # (Auto) 0.03 0.04 (0.00-0.20) K/uL Immature Gran # (Auto) 0.09 0.05 (0.01-0.20) K/uL ESR 26 H (0-20) mm/hr Sodium 137 137 (136-145) mmol/L Potassium 3.7 3.9 (3.5-5.1) mmol/L Chloride 102 103 (98-107) mmol/L Carbon Dioxide 26 30 (21-32) mmol/L Anion Gap 9 4 (3-11) BUN 18 14 (6-23) mg/dl Creatinine 0.96 0.89 (0.6-1.4) mg/dl Est Cr Clr Drug Dosing 74.7 80.6 ml/min eGFR 85.56 92.76 BUN/Creatinine Ratio 18.8 15.7 (10-20) Glucose 109 H 92 (70-99(Fasting)) mg/dl Calcium 8.5 L 9.3 (8.6-10.3) mg/dl Total Bilirubin 0.5 (0.2-1.0) mg/dl AST 20 (13-39) U/L ALT 12 (7-52) U/L Alkaline Phosphatase 83 (34-104) U/L C-Reactive Protein Cancelled 0.65 H (0-0.5) mg/dl Total Protein 6.9 (6.0-8.3) gm/dl Albumin 3.9 (3.4-5.0) gm/dl Globulin 3.0 (2.5-4.0) gm/dl Albumin/Globulin Ratio 1.3 (0.9-2) Medications Administered Current Inpatient Medications Acetaminophen (Acetaminophen 325 Mg Tab) 650 mg PO Q4H PRN PRN Reason: pain/fever Stop: 04/10/25 18:06 Amlodipine Besylate (Amlodipine Besylate 5 Mg Tab) 2.5 mg PO DAILY VIV Stop: 04/11/25 08:59 Aripiprazole (Aripiprazole 5 Mg Tab) 5 mg PO HS VIV Stop: 04/10/25 20:59 Last Admin: 03/11/25 22:38 Dose: 5 mg Artificial Tears (Artificial Tears) 1 drops OP BID VIV Stop: 04/10/25 20:59 Last Admin: 03/11/25 22:41 Dose: Not Given Atorvastatin Calcium (Atorvastatin 40 Mg Tab) 80 mg PO HS VIV Stop: 04/10/25 20:59 Last Admin: 03/11/25 22:37 Dose: 80 mg Baclofen (Baclofen 10 Mg Tab) 10 mg PO HS VIV Stop: 04/10/25 20:59 Last Admin: 03/11/25 22:37 Dose: 10 mg Fluticasone Propionate (Fluticasone Propionate Na Spr 16 Gm Btl) 2 sprays GIL DAILY VIV Stop: 04/11/25 08:59 Fluticasone/Vilanterol (Fluticasone/Vilanterol 200/25mcg 14 Puffs/Inhaler) 1 puffs INH DAILY VIV Stop: 04/11/25 08:59 Gabapentin (Gabapentin 300 Mg Cap) 600 mg PO HS VIV Stop: 04/10/25 20:59 Last Admin: 03/11/25 22:37 Dose: 600 mg Gabapentin (Gabapentin 300 Mg Cap) 300 mg PO BID@0900,1400 VIV Stop: 04/11/25 08:59 Lactated Ringer's (Lr) 1,000 mls @ 15 mls/hr IV .Q24H STA Stop: 03/12/25 13:43 Last Infusion: 03/11/25 14:20 Dose: Infused Ampicillin Sodium/Sulbactam Sodium (Unasyn) 3,000 mg in 100 mls @ 200 mls/hr IV Q6H VIV Stop: 03/18/25 18:06 Last Infusion: 03/12/25 07:45 Dose: Infused Lisinopril (Lisinopril 40 Mg Tab) 40 mg PO DAILY [facility] Stop: 04/11/25 08:59 Magnesium Hydroxide (Magnesium Hydroxide Susp 30 Ml Udc) 30 ml PO Q6H PRN PRN Reason: Constipation Stop: 04/10/25 18:06 Metoprolol Tartrate (Metoprolol Tartrate 25 Mg Tab) 12.5 mg PO BID [facility] Stop: 04/10/25 20:59 Last Admin: 03/11/25 22:38 Dose: 12.5 mg Morphine Sulfate (Morphine Sulfate 4 Mg/Ml 1 Ml Carp\Vial) 3 mg IV Q4H PRN PRN Reason: Severe Pain (Scale 7, 8, 9,10) Stop: 03/25/25 18:06 Ondansetron HCl (Ondansetron Inj 2 Mg/Ml 2 Ml Vial) 4 mg IV Q6H PRN PRN Reason: Nausea Stop: 04/10/25 18:06 Oxycodone HCl (Oxycodone Hcl Ir 5 Mg Tab (Immediate Release)) 5 mg PO Q6H PRN PRN Reason: Moderate Pain (Scale 4, 5, 6) Stop: 03/25/25 18:06 Polyethylene Glycol (Polyethylene (Miralax) 17 Gm Pack) 17 gm PO DAILY PRN PRN Reason: Constipation Stop: 04/10/25 18:06 Prazosin HCl (Prazosin Hcl 1 Mg Cap) 1 mg PO HS VIV Stop: 04/10/25 20:59 Last Admin: 03/11/25 22:37 Dose: 1 mg Venlafaxine HCl (Venlafaxine Hcl Xr 75 Mg Capxr) 225 mg PO DAILY VIV Stop: 04/11/25 08:59 Vitamin D (Cholecalciferol 25 Mcg (1000 Units) Tab) 25 mcg PO DAILY VIV Stop: 04/11/25 08:59
[2025-03-12] MEDS: CHOLECALCIFEROL 25 MCG (1000 UNITS) TAB PO SCH (08:59)
[2025-03-12] MEDS: GABAPENTIN 300 MG CAP PO SCH (08:59)
[2025-03-12] MEDS: FLUTICASONE/VILANTEROL 200/25MCG 14 PUFFS/INHALER INH SCH (09:00)
[2025-03-12] MEDS: FLUTICASONE PROPIONATE NA SPR 16 GM BTL NAE SCH (09:00)
[2025-03-12] MEDS: VENLAFAXINE HCL XR 75 MG CAPXR PO SCH (09:01)
[2025-03-13 06:20] LABS: Hematocrit (blood only) 37.6 % (42.0-52.0); Hemoglobin 12.5 g/dl (14.0-18.0); Mean Corpuscular Hemoglobin 32.1 pg (25.0-34.0); Mean Corpuscular Volume 96.7 fL (80.0-100.0); Platelet Count 262 K/uL (130-400); RDW Standard Deviation 44.2 fL (36.4-46.3); Red Blood Count 3.89 M/uL (4.70-6.10); White Blood Count 9.87 K/ul (4.8-10.8)
[2025-03-13 06:40] LABS: Anion Gap 6.0 (3-11); Blood Urea Nitrogen 19.0 mg/dl (6-23); Calcium 8.2 mg/dl (8.6-10.3); Carbon Dioxide 28.0 mmol/L (21-32); Chloride 105.0 mmol/L (98-107); Creatinine Clr Calc Pharmacy 66.4 ml/min; Glucose 103.0 mg/dl (70-99(Fasting)); Magnesium 2.1 mg/dl (1.7-2.4); Potassium 3.5 mmol/L (3.5-5.1); Sodium 139.0 mmol/L (136-145)
--- NOTE | 2025-03-13 09:07 | Hospitalist Progress Note ---
Date of Service March 13, 2025 Assessment & Plan (1) Cellulitis of right hand: (2) Abscess of right hand: (3) Cat bite: Plan: Septic arthritis Patient is 69-year-old male with PMH HTN, HLD, prediabetes, reactive airway, KEVIN, PTSD, chronic pain, obesity presented to ER with c/o Right hand redness. Patient reports his cat bite his right hand 9 days ago, failed outpatient course of Augmentin In ER afebrile, vital stable. WBC: 13.5 with left shift Right CT hand: 1. Cellulitis with 5 cm probable abscess of the dorsal hand with involvement of the fourth extensor compartment suggestive of associated infectious tenosynovitis. 2. Osteoarthritis without acute osseous abnormality. In ER given Unasyn Wound culture pending Keep NPO for likely surgical procedure later today Ortho consult, ER physician spoke to Dr Ahsford who recommended NPO for OR later today CBC, BMP in am 03/12 wound cultx positive for Pasteurella multocida - final results pending Pt is s/p I&D on 03/11/2025. Per orthopedics - status post irrigation and debridement and exploration of right hand. During surgery, the patient was discovered to have an extensor tendon rupture. I did call and discussed this with my hand surgery colleague, Dr. Capone. He recommended staged reconstruction in the future. We will continue to follow cultures to determine appropriate antibiotic plan. Consider infectious disease consultation. 03/13 ID consulted and discussed with - Septic arthritis - possibly IV abx , will need to check with insurance (4) HTN (hypertension): Plan: Hold tomorrow HCTZ, lisinopril. Resume if BP allows Continue amlodipine, metoprolol tartrate with holding parameters (5) HLD (hyperlipidemia): Plan: Continue atorvastatin (6) Reactive airway disease: Plan: No signs exacerbation Continue home inhalers (7) KEVIN (obstructive sleep apnea): Plan: CPAP HS (8) Chronic pain: Plan: Continue gabapentin, baclofen DVT Prophylaxis SCDs for now as pending surgery Dispo: med surg Full Code as per discussion with pt Follows with [facility] for routine care Admission and Anticipated Discharge Date Admission Date: March 11, 2025 Subjective Pt seen in follow up Status post irrigation and debridement right dorsal hand abscess. Patient resting comfortably this morning. Notes no fevers or chills. No acute complaints this morning. Overall feels well, denies any pain in the hand, says his hand did not really hurt prior to surgery but had visible pus drainage prior to surgery Review of Systems Review of Systems: All systems reviewed & are unremarkable except as noted in Subjective Physical Exam Physical Exam: General: no distress, obese M Head: normocephalic, atraumatic Eyes: conjunctiva non-injected, anicteric ENT: normal inspection external ears, nose, mucous membranes moist Neck: supple, non-tender Lungs: clear, no respiratory distress, no wheezing/rhonchi/rales CV: RRR, no murmur, no pretibial edema Abd: normal BS, soft, non-tender Ext: Right hand/fingers : +erythema and edema dorsal hand and 4th finger. +open wound purulent drainage with palpation.- per admitting provider, now s/p surgery, dressings clean dry/i Neuro: A&O x 3, no focal deficits noted, normal affect Skin: as above ext, otherwise warm, dry Results & Data Results & Data Vital Signs (Past 12 Hours) Vital Signs Temp Pulse Pulse Resp BP Pulse Ox O2 Del Method 03/13/25 07:30 36.5 C 70 18 132/84 96 Room Air 03/12/25 22:39 36.4 C L 03/12/25 22:30 77 16 138/84 94 Room Air Laboratory Results 03/13/25 Range/Units 05:48 WBC 9.87 (4.8-10.8) K/ul RBC 3.89 L (4.70-6.10) M/uL Hgb 12.5 L (14.0-18.0) g/dl Hct 37.6 L (42.0-52.0) % MCV 96.7 (80.0-100.0) fL MCH 32.1 (25.0-34.0) pg MCHC 33.2 (32.0-36.0) g/dL RDW Std Deviation 44.2 (36.4-46.3) fL RDW Coeff of Steve 12.5 (11.5-14.5) % Plt Count 262 (130-400) K/uL MPV 9.5 (9.4-12.4) fL Sodium 139 (136-145) mmol/L Potassium 3.5 (3.5-5.1) mmol/L Chloride 105 (98-107) mmol/L Carbon Dioxide 28 (21-32) mmol/L Anion Gap 6 (3-11) BUN 19 (6-23) mg/dl Creatinine 1.08 (0.6-1.4) mg/dl Est Cr Clr Drug Dosing 66.4 ml/min eGFR 74.28 BUN/Creatinine Ratio 17.6 (10-20) Glucose 103 H (70-99(Fasting)) mg/dl Calcium 8.2 L (8.6-10.3) mg/dl Phosphorus 2.9 (2.5-4.9) mg/dl Magnesium 2.1 (1.7-2.4) mg/dl Medications Administered Current Inpatient Medications Acetaminophen (Acetaminophen 325 Mg Tab) 650 mg PO Q4H PRN PRN Reason: pain/fever Stop: 04/10/25 18:06 Amlodipine Besylate (Amlodipine Besylate 5 Mg Tab) 2.5 mg PO DAILY VIV Stop: 04/11/25 08:59 Last Admin: 03/13/25 07:59 Dose: 2.5 mg Aripiprazole (Aripiprazole 5 Mg Tab) 5 mg PO HS VIV Stop: 04/10/25 20:59 Last Admin: 03/12/25 22:12 Dose: 5 mg Artificial Tears (Artificial Tears) 1 drops OP BID VIV Stop: 04/10/25 20:59 Last Admin: 03/13/25 07:57 Dose: Not Given Atorvastatin Calcium (Atorvastatin 40 Mg Tab) 80 mg PO HS VIV Stop: 04/10/25 20:59 Last Admin: 03/12/25 22:16 Dose: 80 mg Baclofen (Baclofen 10 Mg Tab) 10 mg PO HS VIV Stop: 04/10/25 20:59 Last Admin: 03/12/25 22:17 Dose: 10 mg Fluticasone Propionate (Fluticasone Propionate Na Spr 16 Gm Btl) 2 sprays GIL DAILY VIV Stop: 04/11/25 08:59 Last Admin: 03/13/25 07:57 Dose: Not Given Fluticasone/Vilanterol (Fluticasone/Vilanterol 200/25mcg 14 Puffs/Inhaler) 1 puffs INH DAILY VIV Stop: 04/11/25 08:59 Last Admin: 03/13/25 07:56 Dose: 1 puffs Gabapentin (Gabapentin 300 Mg Cap) 600 mg PO HS VIV Stop: 04/10/25 20:59 Last Admin: 03/12/25 22:10 Dose: 600 mg Gabapentin (Gabapentin 300 Mg Cap) 300 mg PO BID@0900,1400 VIV Stop: 04/11/25 08:59 Last Admin: 03/13/25 07:58 Dose: 300 mg Ampicillin Sodium/Sulbactam Sodium (Unasyn) 3,000 mg in 100 mls @ 200 mls/hr IV Q6H VIV Stop: 03/18/25 18:06 Last Infusion: 03/13/25 06:44 Dose: Infused Lisinopril (Lisinopril 40 Mg Tab) 40 mg PO DAILY VIV Stop: 04/11/25 08:59 Magnesium Hydroxide (Magnesium Hydroxide Susp 30 Ml Udc) 30 ml PO Q6H PRN PRN Reason: Constipation Stop: 04/10/25 18:06 Metoprolol Tartrate (Metoprolol Tartrate 25 Mg Tab) 12.5 mg PO BID VIV Stop: 04/10/25 20:59 Last Admin: 03/13/25 07:58 Dose: 12.5 mg Morphine Sulfate (Morphine Sulfate 4 Mg/Ml 1 Ml Carp\Vial) 3 mg IV Q4H PRN PRN Reason: Severe Pain (Scale 7, 8, 9,10) Stop: 03/25/25 18:06 Ondansetron HCl (Ondansetron Inj 2 Mg/Ml 2 Ml Vial) 4 mg IV Q6H PRN PRN Reason: Nausea Stop: 04/10/25 18:06 Oxycodone HCl (Oxycodone Hcl Ir 5 Mg Tab (Immediate Release)) 5 mg PO Q6H PRN PRN Reason: Moderate Pain (Scale 4, 5, 6) Stop: 03/25/25 18:06 Polyethylene Glycol (Polyethylene (Miralax) 17 Gm Pack) 17 gm PO DAILY PRN PRN Reason: Constipation Stop: 04/10/25 18:06 Potassium Chloride (Potassium Chloride Crtab 20 Meq Tabcr) 20 meq PO NOW STA Stop: 03/13/25 09:07 Prazosin HCl (Prazosin Hcl 1 Mg Cap) 1 mg PO HS VIV Stop: 04/10/25 20:59 Last Admin: 03/12/25 22:17 Dose: 1 mg Venlafaxine HCl (Venlafaxine Hcl Xr 75 Mg Capxr) 225 mg PO DAILY VIV Stop: 04/11/25 08:59 Last Admin: 03/13/25 07:58 Dose: 225 mg Vitamin D (Cholecalciferol 25 Mcg (1000 Units) Tab) 25 mcg PO DAILY VIV Stop: 04/11/25 08:59 Last Admin: 03/13/25 07:57 Dose: 25 mcg
[2025-03-13] MEDS: POTASSIUM CHLORIDE CRTAB 20 MEQ TABCR PO STA (09:27)
--- NOTE | 2025-03-13 13:18 | Orthopedic Progress Note ---
Date of Service March 13, 2025 Assessment & Plan (1) Extensor tendon rupture of hand: (2) Cat bite: (3) Tenosynovitis: (4) Abscess of right hand: (5) Cellulitis of right hand: Plan 69-year-old gentleman postoperative day #2 status post irrigation debridement of right dorsal hand abscess. Intraoperatively was discovered that the patient had sustained a rupture of his extensor tendon from this infection as well. He patient's cultures are growing Pasteurella multicoda. Currently on IV Unasyn. Antibiotic plan per medicine/infectious disease. Patient's dressing was changed today. This dressing will now stay on until follow-up visit. Patient will follow-up with Dr. Capone for wound check next week and to discuss staged reconstruction once the infection is cleared Admission and Anticipated Discharge Date Admission Date: March 11, 2025 Subjective 69-year-old gentleman postoperative day #2 status post irrigation and debridement of right dorsal hand abscess. Overall patient doing well. Denies acute complaints. Review of Systems Review of Systems: All systems reviewed & are unremarkable except as noted in HPI & below Physical Exam Physical Exam: Patient's dressing changed today. Patient's wound is well-approximated without signs of erythema, drainage, infection. Patient unable to extend ring digit. Results & Data Vital Signs (Past 12 Hours) Vital Signs Temp Pulse Resp BP Pulse Ox O2 Del Method 03/13/25 11:17 36.6 C 75 18 122/78 95 Room Air 03/13/25 07:30 36.5 C 70 18 132/84 96 Room Air Laboratory Results WBC 9.87 Diagnostic Findings cultures growing pasturella multicoda (2) Cat bite Encounter type: subsequent encounter Qualified Code(s): W55.01XD - Bitten by cat, subsequent encounter
--- NOTE | 2025-03-13 15:52 | Infectious Disease Consult ---
Date of Service March 13, 2025 Telehealth Information I performed this visit using a real-time telehealth connection between my location and the patients location ([facility]). After connecting through interactive tele-video, patient was identified by name and date of and/or wristband check.Patient (or authorized healthcare outside sales account representative) was informed that this was a telemedicine visit and it was being conducted confidentially over secure lines. My office door was closed and no one else was present in the room with me.Patient (or authorized healthcare outside sales account representative) provided consent to proceed with the visit, expressed an understanding of privacy and security of the telemedicine visit, and gave permission to have a hospital outside sales account representative in the room in order to assist with the visit and to conduct portions of the visit, as needed. I informed the patient (or authorized healthcare outside sales account representative) that I reviewed their record and presented the opportunity for them to ask any questions regarding the visit today. The patient agreed to participate. Assessment & Plan (1) Infected cat bite: (2) Abscess of right hand: (3) Status post incision and drainage: Plan I agree with IV Unasyn. Based on operative findings, the infection was deep down to the middle finger metacarpophalangeal joint and resulting in extensor tendon rupture. Debridement was also performed down to the level of the bone, which makes me concerned about osteomyelitis. If the patient is agreeable with IV Unasyn, I would recommend to continue with IV Unasyn with intermittent infusion while inpatient and then continuous infusion via pump while outpatient to complete a course of 6 weeks from the day of I&D with anticipated end date of April 22, 2025. However, if the patient is not agreeable with IV Unasyn or it is not being covered by his insurance, consider stepping down IV Unasyn to oral Augmentin 875/125 TID to complete the course of treatment. Thank you for consulting Infectious Disease. We will continue to follow. History of Present Illness History of Present Illness Mr. Cat is a 69-year-old man with past medical history of HTN, prediabetes, dyslipidemia, reactive airways, obesity, and PTSD who was admitted to [facility] on 03/11/2025 because of right hand swelling and redness following a cat bite around 10 days prior to presentation. He also mentioned that he was seen at [facility] around 1 week prior to presentation and was started on Augmentin. Despite being on Augmentin, no improvement in his right hand swelling and pain has been noticed. Head CT was obtained on presentation which showed cellulitis with 5 cm abscess of the dorsal hand with involvement of the 4th extensor compartment suggestive of infectious tenosynovitis. He was eventually taken for an I and D on 03/11 by Orthopedic with intraoperative cultures growing pasteurella multocida. ID was consulted for further recommendations and to help guide antibiotic treatment. Allergies Allergy/AdvReac Type Severity Reaction Status Date / Time No Known Allergies Allergy Unknown Unverified 10/07/07 09:19 Home Medications Medication Instructions Recorded Confirmed Type albuterol sulfate 90 mcg/actuation 2 puff inhalation Q4H PRN 03/11/25 03/11/25 History aerosol inhaler sob/cough/wheeze amlodipine 2.5 mg tablet 2.5 mg PO DAILY 03/11/25 03/11/25 History aripiprazole 5 mg tablet 5 mg PO HS 03/11/25 03/11/25 History aspirin 81 mg tablet,delayed 81 mg PO DAILY 03/11/25 03/11/25 History release atorvastatin 80 mg tablet 80 mg PO HS 03/11/25 03/11/25 History baclofen 10 mg tablet 10 mg PO HS 03/11/25 03/11/25 History carboxymethylcellulose sodium 0.5 1 drp ophthalmic (eye) BID 03/11/25 03/11/25 History % eye drops cholecalciferol (vitamin D3) 25 25 mcg PO DAILY 03/11/25 03/11/25 History mcg (1,000 unit) tablet cyanocobalamin (vitamin B-12) 1,000 mcg IM MONTHLY 03/11/25 03/11/25 History 1,000 mcg/mL injection solution diclofenac sodium 1 % topical gel 2 g topical QID 03/11/25 03/11/25 History donepezil 5 mg tablet 5 mg PO BID 03/11/25 03/11/25 History doxylamine succinate 25 mg tablet 25 mg PO HS PRN Sleep 03/11/25 03/11/25 History fish oil-dha-epa 1,000 mg PO DAILY 03/11/25 03/11/25 History fluticasone 500 mcg-salmeterol 50 1 inh inhalation BID 03/11/25 03/11/25 History mcg/dose blistr powdr for inhalation fluticasone propionate 50 2 spray intranasal DAILY 03/11/25 03/11/25 History mcg/actuation nasal spray,suspension gabapentin 300 mg capsule 300 mg PO BID 03/11/25 03/11/25 History gabapentin 300 mg capsule 600 mg PO HS 03/11/25 03/11/25 History hydrochlorothiazide 25 mg tablet 12.5 mg PO DAILY 03/11/25 03/11/25 History lisinopril 40 mg tablet 40 mg PO DAILY 03/11/25 03/11/25 History meloxicam 15 mg tablet 15 mg PO DAILY PRN Other 03/11/25 03/11/25 History metoprolol tartrate 25 mg tablet 12.5 mg PO BID 03/11/25 03/11/25 History multivitamin 1 tab PO DAILY 03/11/25 03/11/25 History prazosin 1 mg capsule 1 mg PO HS 03/11/25 03/11/25 History semaglutide (weight loss) 1.7 1.7 mg subcut Q7D 03/11/25 03/11/25 History mg/0.75 mL subcutaneous pen injector terbinafine HCl 1 % topical cream 1 applic topical BID 03/11/25 03/11/25 History triamcinolone acetonide 0.025 % 1 applic topical UD PRN Other 03/11/25 03/11/25 History topical cream urea 20 % topical cream 1 applic topical DAILY PRN Dry Skin 03/11/25 03/11/25 History venlafaxine 75 mg tablet 225 mg PO DAILY 03/11/25 03/11/25 History Patient History Medical History PTSD (post-traumatic stress disorder) Chronic pain KEVIN (obstructive sleep apnea) Reactive airway disease HLD (hyperlipidemia) HTN (hypertension) Cat bite Surgical History History of cataract surgery History of surgery right index finger surgery Family History Brother Cancer Social History Smoking Status: Never smoker Hx Alcohol Use: No Hx Substance Use: No Preferred Language: Serbian Communication Ability: Effective Natural Resources Faculty Member Required: No Beliefs That Will Affect Care: None Current Living Situation: Spouse Feels Safe at Home: Yes Assistive Devices: CPAP and Hearing Aid - Bilateral Review of Systems Negative except for what was mentioned in the H&P. Physical Exam Could not be performed as the visit was conducted via TeleMed. Results & Data Vital Signs (Past 12 Hours) Vital Signs Temp Pulse Pulse Resp BP Pulse Ox O2 Del Method 03/13/25 14:19 36.5 C 75 16 143/90 H 94 Room Air 03/13/25 11:17 36.6 C 75 18 122/78 95 Room Air 03/13/25 07:30 36.5 C 70 18 132/84 96 Room Air Laboratory Results Microbiology: 03/11: Deep ring metacarpophalangeal joint culture growing pasteurella 03/11: Intraoperative deep wound culture growing pasteurella Diagnostic Findings CT hand performed on 03/11: IMPRESSION: 1. Cellulitis with 5 cm probable abscess of the dorsal hand with involvement of the fourth extensor compartment suggestive of associated infectious tenosynovitis. 2. Osteoarthritis without acute osseous abnormality.
[2025-03-14 06:07] LABS: Hematocrit (blood only) 37.5 % (42.0-52.0); Hemoglobin 13.0 g/dl (14.0-18.0); Mean Corpuscular Hemoglobin 33.2 pg (25.0-34.0); Mean Corpuscular Volume 95.9 fL (80.0-100.0); Platelet Count 258 K/uL (130-400); RDW Standard Deviation 43.0 fL (36.4-46.3); Red Blood Count 3.91 M/uL (4.70-6.10); White Blood Count 8.89 K/ul (4.8-10.8)
[2025-03-14 06:27] LABS: Anion Gap 5.0 (3-11); Blood Urea Nitrogen 16.0 mg/dl (6-23); Calcium 8.4 mg/dl (8.6-10.3); Carbon Dioxide 26.0 mmol/L (21-32); Chloride 109.0 mmol/L (98-107); Creatinine Clr Calc Pharmacy 77.1 ml/min; Glucose 96.0 mg/dl (70-99(Fasting)); Magnesium 2.2 mg/dl (1.7-2.4); Potassium 3.8 mmol/L (3.5-5.1); Sodium 140.0 mmol/L (136-145)
--- NOTE | 2025-03-14 09:25 | Orthopedic Progress Note ---
Date of Service March 14, 2025 Assessment & Plan (1) Extensor tendon rupture of hand: (2) Cat bite: (3) Tenosynovitis: (4) Abscess of right hand: (5) Cellulitis of right hand: Plan 69-year-old gentleman postoperative day #3 status post irrigation debridement of right dorsal hand abscess. Intraoperatively was discovered that the patient had sustained a rupture of his extensor tendon from this infection as well. He patient's cultures are growing Pasteurella multicoda. Currently on IV Unasyn. Antibiotic plan per medicine/infectious disease. Patient's dressing was changed yesterday. This dressing will now stay on until follow-up visit. Patient will follow-up with Dr. Capone for wound check next week and to discuss staged reconstruction once the infection is cleared Admission and Anticipated Discharge Date Admission Date: March 11, 2025 Subjective 69-year-old gentleman postoperative day #3 status post irrigation and debride ment of right dorsal hand abscess. Overall patient doing well. Denies acute complaints. Physical Exam Physical Exam: dressing c/d/i Results & Data Vital Signs (Past 12 Hours) Vital Signs Temp Pulse Resp BP Pulse Ox O2 Del Method 03/14/25 07:37 36.5 C 72 16 154/98 H 94 Room Air (2) Cat bite Encounter type: subsequent encounter Qualified Code(s): W55.01XD - Bitten by cat, subsequent encounter
--- NOTE | 2025-03-14 10:49 | Hospitalist Progress Note ---
Date of Service March 14, 2025 Assessment & Plan (1) Cellulitis of right hand: (2) Abscess of right hand: (3) Cat bite: Plan: Septic arthritis Patient is 69-year-old male with PMH HTN, HLD, prediabetes, reactive airway, KEVIN, PTSD, chronic pain, obesity presented to ER with c/o Right hand redness. Patient reports his cat bite his right hand 9 days ago, failed outpatient course of Augmentin In ER afebrile, vital stable. WBC: 13.5 with left shift Right CT hand: 1. Cellulitis with 5 cm probable abscess of the dorsal hand with involvement of the fourth extensor compartment suggestive of associated infectious tenosynovitis. 2. Osteoarthritis without acute osseous abnormality. In ER given Unasyn Wound culture pending Keep NPO for likely surgical procedure later today Ortho consult, ER physician spoke to Dr Ashford who recommended NPO for OR later today CBC, BMP in am 03/12 wound cultx positive for Pasteurella multocida - final results pending Pt is s/p I&D on 03/11/2025. Per orthopedics - status post irrigation and debridement and exploration of right hand. During surgery, the patient was discovered to have an extensor tendon rupture. I did call and discussed this with my hand surgery colleague, Dr. Capone. He recommended staged reconstruction in the future. We will continue to follow cultures to determine appropriate antibiotic plan. Consider infectious disease consultation. 03/13 ID consulted and discussed with - Septic arthritis - possibly IV abx , will need to check with insurance -> notified CM -> likely will not hear back until Sunday (4) HTN (hypertension): Plan: Hold tomorrow HCTZ, lisinopril. Resume if BP allows Continue amlodipine, metoprolol tartrate with holding parameters (5) HLD (hyperlipidemia): Plan: Continue atorvastatin (6) Reactive airway disease: Plan: No signs exacerbation Continue home inhalers (7) KEVIN (obstructive sleep apnea): Plan: CPAP HS (8) Chronic pain: Plan: Continue gabapentin, baclofen DVT Prophylaxis SCDs for now as pending surgery Dispo: med surg Full Code as per discussion with pt Follows [facility] for routine care Admission and Anticipated Discharge Date Admission Date: March 11, 2025 Subjective Pt seen in follow up Status post irrigation and debridement right dorsal hand abscess. Overall feels well, denies any fever, chills, pain in the hand, says his hand did not really hurt prior to surgery but had visible pus drainage prior to surgery no chest pain, shortness of breath Review of Systems Review of Systems: All systems reviewed & are unremarkable except as noted in Subjective Physical Exam Physical Exam: General: no distress, obese M Head: normocephalic, atraumatic Eyes: conjunctiva non-injected, anicteric ENT: normal inspection external ears, nose, mucous membranes moist Neck: supple, non-tender Lungs: clear, no respiratory distress, no wheezing/rhonchi/rales CV: RRR, no murmur, no pretibial edema Abd: normal BS, soft, non-tender Ext: Right hand/fingers : +erythema and edema dorsal hand and 4th finger. +open wound purulent drainage with palpation.- per admitting provider, now s/p surgery, dressings clean dry/i Neuro: A&O x 3, no focal deficits noted, normal affect Skin: as above ext, otherwise warm, dry Results & Data Results & Data Vital Signs (Past 12 Hours) Vital Signs Temp Pulse Resp BP Pulse Ox O2 Del Method 03/14/25 07:37 36.5 C 72 16 154/98 H 94 Room Air Laboratory Results 03/14/25 Range/Units 05:50 WBC 8.89 (4.8-10.8) K/ul RBC 3.91 L (4.70-6.10) M/uL Hgb 13.0 L (14.0-18.0) g/dl Hct 37.5 L (42.0-52.0) % MCV 95.9 (80.0-100.0) fL MCH 33.2 (25.0-34.0) pg MCHC 34.7 (32.0-36.0) g/dL RDW Std Deviation 43.0 (36.4-46.3) fL RDW Coeff of Steve 12.2 (11.5-14.5) % Plt Count 258 (130-400) K/uL MPV 9.4 (9.4-12.4) fL Sodium 140 (136-145) mmol/L Potassium 3.8 (3.5-5.1) mmol/L Chloride 109 H (98-107) mmol/L Carbon Dioxide 26 (21-32) mmol/L Anion Gap 5 (3-11) BUN 16 (6-23) mg/dl Creatinine 0.93 (0.6-1.4) mg/dl Est Cr Clr Drug Dosing 77.1 ml/min eGFR 88.89 BUN/Creatinine Ratio 17.2 (10-20) Glucose 96 (70-99(Fasting)) mg/dl Calcium 8.4 L (8.6-10.3) mg/dl Phosphorus 3.2 (2.5-4.9) mg/dl Magnesium 2.2 (1.7-2.4) mg/dl Medications Administered Current Inpatient Medications Acetaminophen (Acetaminophen 325 Mg Tab) 650 mg PO Q4H PRN PRN Reason: pain/fever Stop: 04/10/25 18:06 Amlodipine Besylate (Amlodipine Besylate 5 Mg Tab) 2.5 mg PO DAILY VIV Stop: 04/11/25 08:59 Last Admin: 03/14/25 08:26 Dose: 2.5 mg Aripiprazole (Aripiprazole 5 Mg Tab) 5 mg PO HS VIV Stop: 04/10/25 20:59 Last Admin: 03/13/25 21:19 Dose: 5 mg Artificial Tears (Artificial Tears) 1 drops OP BID VIV Stop: 04/10/25 20:59 Last Admin: 03/14/25 08:27 Dose: Not Given Atorvastatin Calcium (Atorvastatin 40 Mg Tab) 80 mg PO HS VIV Stop: 04/10/25 20:59 Last Admin: 03/13/25 21:19 Dose: 80 mg Baclofen (Baclofen 10 Mg Tab) 10 mg PO HS VIV Stop: 04/10/25 20:59 Last Admin: 03/13/25 21:19 Dose: 10 mg Fluticasone Propionate (Fluticasone Propionate Na Spr 16 Gm Btl) 2 sprays GIL DAILY VIV Stop: 04/11/25 08:59 Last Admin: 03/14/25 08:27 Dose: Not Given Fluticasone/Vilanterol (Fluticasone/Vilanterol 200/25mcg 14 Puffs/Inhaler) 1 puffs INH DAILY VIV Stop: 04/11/25 08:59 Last Admin: 03/14/25 08:25 Dose: 1 puffs Gabapentin (Gabapentin 300 Mg Cap) 600 mg PO HS VIV Stop: 04/10/25 20:59 Last Admin: 03/13/25 21:19 Dose: 600 mg Gabapentin (Gabapentin 300 Mg Cap) 300 mg PO BID@0900,1400 [facility] Stop: 04/11/25 08:59 Last Admin: 03/14/25 08:27 Dose: 300 mg Ampicillin Sodium/Sulbactam Sodium (Unasyn) 3,000 mg in 100 mls @ 200 mls/hr IV Q6H VIV Stop: 03/18/25 18:06 Last Infusion: 03/14/25 12:39 Dose: Infused Lisinopril (Lisinopril 40 Mg Tab) 40 mg PO DAILY VIV Stop: 04/11/25 08:59 Magnesium Hydroxide (Magnesium Hydroxide Susp 30 Ml Udc) 30 ml PO Q6H PRN PRN Reason: Constipation Stop: 04/10/25 18:06 Metoprolol Tartrate (Metoprolol Tartrate 25 Mg Tab) 12.5 mg PO BID [facility] Stop: 04/10/25 20:59 Last Admin: 03/14/25 08:25 Dose: 12.5 mg Morphine Sulfate (Morphine Sulfate 4 Mg/Ml 1 Ml Carp\Vial) 3 mg IV Q4H PRN PRN Reason: Severe Pain (Scale 7, 8, 9,10) Stop: 03/25/25 18:06 Ondansetron HCl (Ondansetron Inj 2 Mg/Ml 2 Ml Vial) 4 mg IV Q6H PRN PRN Reason: Nausea Stop: 04/10/25 18:06 Oxycodone HCl (Oxycodone Hcl Ir 5 Mg Tab (Immediate Release)) 5 mg PO Q6H PRN PRN Reason: Moderate Pain (Scale 4, 5, 6) Stop: 03/25/25 18:06 Polyethylene Glycol (Polyethylene (Miralax) 17 Gm Pack) 17 gm PO DAILY PRN PRN Reason: Constipation Stop: 04/10/25 18:06 Prazosin HCl (Prazosin Hcl 1 Mg Cap) 1 mg PO HS [facility] Stop: 04/10/25 20:59 Last Admin: 03/13/25 21:20 Dose: 1 mg Venlafaxine HCl (Venlafaxine Hcl Xr 75 Mg Capxr) 225 mg PO DAILY VIV Stop: 04/11/25 08:59 Last Admin: 03/14/25 08:26 Dose: 225 mg Vitamin D (Cholecalciferol 25 Mcg (1000 Units) Tab) 25 mcg PO DAILY VIV Stop: 04/11/25 08:59 Last Admin: 03/14/25 08:26 Dose: 25 mcg
[2025-03-15 06:11] LABS: Hematocrit (blood only) 38.6 % (42.0-52.0); Hemoglobin 13.5 g/dl (14.0-18.0); Mean Corpuscular Hemoglobin 33.7 pg (25.0-34.0); Mean Corpuscular Volume 96.3 fL (80.0-100.0); Platelet Count 283 K/uL (130-400); RDW Standard Deviation 43.4 fL (36.4-46.3); Red Blood Count 4.01 M/uL (4.70-6.10); White Blood Count 8.25 K/ul (4.8-10.8)
[2025-03-15 06:33] LABS: Anion Gap 6.0 (3-11); Blood Urea Nitrogen 16.0 mg/dl (6-23); Calcium 8.6 mg/dl (8.6-10.3); Carbon Dioxide 24.0 mmol/L (21-32); Chloride 109.0 mmol/L (98-107); Creatinine Clr Calc Pharmacy 77.1 ml/min; Glucose 116.0 mg/dl (70-99(Fasting)); Magnesium 2.1 mg/dl (1.7-2.4); Potassium 3.7 mmol/L (3.5-5.1); Sodium 139.0 mmol/L (136-145)
--- NOTE | 2025-03-15 09:30 | Hospitalist Progress Note ---
Date of Service March 15, 2025 Assessment & Plan (1) Cellulitis of right hand: (2) Abscess of right hand: (3) Cat bite: Plan: Septic arthritis Patient is 69-year-old male with PMH HTN, HLD, prediabetes, reactive airway, KEVIN, PTSD, chronic pain, obesity presented to ER with c/o Right hand redness. Patient reports his cat bite his right hand 9 days ago, failed outpatient course of Augmentin In ER afebrile, vital stable. WBC: 13.5 with left shift Right CT hand: 1. Cellulitis with 5 cm probable abscess of the dorsal hand with involvement of the fourth extensor compartment suggestive of associated infectious tenosynovitis. 2. Osteoarthritis without acute osseous abnormality. In ER given Unasyn Wound culture pending Keep NPO for likely surgical procedure later today Ortho consult, ER physician spoke to Dr Ashford who recommended NPO for OR later today CBC, BMP in am 03/12 wound cultx positive for Pasteurella multocida - final results pending Pt is s/p I&D on 03/11/2025. Per orthopedics - status post irrigation and debridement and exploration of right hand. During surgery, the patient was discovered to have an extensor tendon rupture. I did call and discussed this with my hand surgery colleague, Dr. Capone. He recommended staged reconstruction in the future. We will continue to follow cultures to determine appropriate antibiotic plan. Consider infectious disease consultation. 03/13 ID consulted and discussed with - Septic arthritis - possibly IV abx , will need to check with insurance -> notified CM -> likely will not hear back until Sunday (4) HTN (hypertension): Plan: Hold HCTZ, continue lisinopril. Continue amlodipine, metoprolol tartrate with holding parameters monitor BP (5) HLD (hyperlipidemia): Plan: Continue atorvastatin (6) Reactive airway disease: Plan: No signs exacerbation Continue home inhalers (7) KEVIN (obstructive sleep apnea): Plan: CPAP HS (8) Chronic pain: Plan: Continue gabapentin, baclofen DVT Prophylaxis SCDs for now as pending surgery Dispo: med surg Full Code as per discussion with pt Follows with [facility] for routine care Admission and Anticipated Discharge Date Admission Date: March 11, 2025 Subjective Pt seen in follow up Status post irrigation and debridement right dorsal hand abscess. Overall feels well, denies any fever, chills, pain in the hand, says his hand did not really hurt prior to surgery but had visible pus drainage prior to surgery no chest pain, shortness of breath Review of Systems Review of Systems: All systems reviewed & are unremarkable except as noted in Subjective Physical Exam Physical Exam: General: no distress, obese M Head: normocephalic, atraumatic Eyes: conjunctiva non-injected, anicteric ENT: normal inspection external ears, nose, mucous membranes moist Neck: supple, non-tender Lungs: clear, no respiratory distress, no wheezing/rhonchi/rales CV: RRR, no murmur, no pretibial edema Abd: normal BS, soft, non-tender Ext: Right hand/fingers : +erythema and edema dorsal hand and 4th finger. +open wound purulent drainage with palpation.- per admitting provider, now s/p surgery, dressings clean dry/i Neuro: A&O x 3, no focal deficits noted, normal affect Skin: as above ext, otherwise warm, dry Results & Data Results & Data Vital Signs (Past 12 Hours) Vital Signs Temp Pulse Pulse Resp BP Pulse Ox O2 Del Method 03/15/25 07:10 36.6 C 69 16 167/103 H 95 Room Air 03/14/25 22:52 36.6 C 80 20 131/87 93 Room Air Laboratory Results 03/15/25 Range/Units 05:54 WBC 8.25 (4.8-10.8) K/ul RBC 4.01 L (4.70-6.10) M/uL Hgb 13.5 L (14.0-18.0) g/dl Hct 38.6 L (42.0-52.0) % MCV 96.3 (80.0-100.0) fL MCH 33.7 (25.0-34.0) pg MCHC 35.0 (32.0-36.0) g/dL RDW Std Deviation 43.4 (36.4-46.3) fL RDW Coeff of Steve 12.2 (11.5-14.5) % Plt Count 283 (130-400) K/uL MPV 9.4 (9.4-12.4) fL Sodium 139 (136-145) mmol/L Potassium 3.7 (3.5-5.1) mmol/L Chloride 109 H (98-107) mmol/L Carbon Dioxide 24 (21-32) mmol/L Anion Gap 6 (3-11) BUN 16 (6-23) mg/dl Creatinine 0.93 (0.6-1.4) mg/dl Est Cr Clr Drug Dosing 77.1 ml/min eGFR 88.89 BUN/Creatinine Ratio 17.2 (10-20) Glucose 116 H (70-99(Fasting)) mg/dl Calcium 8.6 (8.6-10.3) mg/dl Phosphorus 3.0 (2.5-4.9) mg/dl Magnesium 2.1 (1.7-2.4) mg/dl Medications Administered Current Inpatient Medications Acetaminophen (Acetaminophen 325 Mg Tab) 650 mg PO Q4H PRN PRN Reason: pain/fever Stop: 04/10/25 18:06 Amlodipine Besylate (Amlodipine Besylate 5 Mg Tab) 2.5 mg PO DAILY VIV Stop: 04/11/25 08:59 Last Admin: 03/15/25 08:08 Dose: 2.5 mg Aripiprazole (Aripiprazole 5 Mg Tab) 5 mg PO HS VIV Stop: 04/10/25 20:59 Last Admin: 03/14/25 20:09 Dose: 5 mg Artificial Tears (Artificial Tears) 1 drops OP BID VIV Stop: 04/10/25 20:59 Last Admin: 03/15/25 08:09 Dose: Not Given Atorvastatin Calcium (Atorvastatin 40 Mg Tab) 80 mg PO HS VIV Stop: 04/10/25 20:59 Last Admin: 03/14/25 20:09 Dose: 80 mg Baclofen (Baclofen 10 Mg Tab) 10 mg PO HS VIV Stop: 04/10/25 20:59 Last Admin: 03/14/25 20:09 Dose: 10 mg Fluticasone Propionate (Fluticasone Propionate Na Spr 16 Gm Btl) 2 sprays GIL DAILY VIV Stop: 04/11/25 08:59 Last Admin: 03/15/25 08:07 Dose: Not Given Fluticasone/Vilanterol (Fluticasone/Vilanterol 200/25mcg 14 Puffs/Inhaler) 1 puffs INH DAILY VIV Stop: 04/11/25 08:59 Last Admin: 03/15/25 08:06 Dose: 1 puffs Gabapentin (Gabapentin 300 Mg Cap) 600 mg PO HS VIV Stop: 04/10/25 20:59 Last Admin: 03/14/25 20:09 Dose: 600 mg Gabapentin (Gabapentin 300 Mg Cap) 300 mg PO BID@0900,1400 [facility] Stop: 04/11/25 08:59 Last Admin: 03/15/25 08:07 Dose: 300 mg Ampicillin Sodium/Sulbactam Sodium (Unasyn) 3,000 mg in 100 mls @ 200 mls/hr IV Q6H VIV Stop: 03/18/25 18:06 Last Infusion: 03/15/25 06:39 Dose: Infused Lisinopril (Lisinopril 40 Mg Tab) 40 mg PO DAILY [facility] Stop: 04/11/25 08:59 Last Admin: 03/15/25 08:07 Dose: 40 mg Magnesium Hydroxide (Magnesium Hydroxide Susp 30 Ml Udc) 30 ml PO Q6H PRN PRN Reason: Constipation Stop: 04/10/25 18:06 Metoprolol Tartrate (Metoprolol Tartrate 25 Mg Tab) 12.5 mg PO BID [facility] Stop: 04/10/25 20:59 Last Admin: 03/15/25 08:08 Dose: 12.5 mg Morphine Sulfate (Morphine Sulfate 4 Mg/Ml 1 Ml Carp\Vial) 3 mg IV Q4H PRN PRN Reason: Severe Pain (Scale 7, 8, 9,10) Stop: 03/25/25 18:06 Ondansetron HCl (Ondansetron Inj 2 Mg/Ml 2 Ml Vial) 4 mg IV Q6H PRN PRN Reason: Nausea Stop: 04/10/25 18:06 Oxycodone HCl (Oxycodone Hcl Ir 5 Mg Tab (Immediate Release)) 5 mg PO Q6H PRN PRN Reason: Moderate Pain (Scale 4, 5, 6) Stop: 03/25/25 18:06 Polyethylene Glycol (Polyethylene (Miralax) 17 Gm Pack) 17 gm PO DAILY PRN PRN Reason: Constipation Stop: 04/10/25 18:06 Prazosin HCl (Prazosin Hcl 1 Mg Cap) 1 mg PO HS [facility] Stop: 04/10/25 20:59 Last Admin: 03/14/25 20:10 Dose: 1 mg Venlafaxine HCl (Venlafaxine Hcl Xr 75 Mg Capxr) 225 mg PO DAILY [facility] Stop: 04/11/25 08:59 Last Admin: 03/15/25 08:07 Dose: 225 mg Vitamin D (Cholecalciferol 25 Mcg (1000 Units) Tab) 25 mcg PO DAILY VIV Stop: 04/11/25 08:59 Last Admin: 03/15/25 08:07 Dose: 25 mcg
[2025-03-15] MEDS: ADVANCED PROBIOTIC 625 MG CAPSULE PO SCH (16:40)
--- NOTE | 2025-03-16 15:54 | Hospitalist Progress Note ---
Date of Service March 16, 2025 Assessment & Plan (1) Cellulitis of right hand: (2) Abscess of right hand: (3) Cat bite: Plan: Septic arthritis Patient is 69-year-old male with PMH HTN, HLD, prediabetes, reactive airway, KEVIN, PTSD, chronic pain, obesity presented to ER with c/o Right hand redness. Patient reports his cat bite his right hand 9 days ago, failed outpatient course of Augmentin In ER afebrile, vital stable. WBC: 13.5 with left shift Right CT hand: 1. Cellulitis with 5 cm probable abscess of the dorsal hand with involvement of the fourth extensor compartment suggestive of associated infectious tenosynovitis. 2. Osteoarthritis without acute osseous abnormality. In ER given Unasyn Wound culture pending Keep NPO for likely surgical procedure later today Ortho consult, ER physician spoke to Dr Ashford who recommended NPO for OR later today CBC, BMP in am 03/12 wound cultx positive for Pasteurella multocida - final results pending Pt is s/p I&D on 03/11/2025. Per orthopedics - status post irrigation and debridement and exploration of right hand. During surgery, the patient was discovered to have an extensor tendon rupture. I did call and discussed this with my hand surgery colleague, Dr. Capone. He recommended staged reconstruction in the future. We will continue to follow cultures to determine appropriate antibiotic plan. Consider infectious disease consultation. 03/13 ID consulted and discussed with - Septic arthritis - possibly IV abx , will need to check with insurance -> CM involved and discussed with - likely will DC tmrw w/ iv abx (4) HTN (hypertension): Plan: Hold HCTZ, continue lisinopril. Continue amlodipine, metoprolol tartrate with holding parameters monitor BP (5) HLD (hyperlipidemia): Plan: Continue atorvastatin (6) Reactive airway disease: Plan: No signs exacerbation Continue home inhalers (7) KEVIN (obstructive sleep apnea): Plan: CPAP HS (8) Chronic pain: Plan: Continue gabapentin, baclofen DVT Prophylaxis SCDs for now as pending surgery Dispo: med surg Full Code as per discussion with pt Follows with [facility] for routine care Admission and Anticipated Discharge Date Admission Date: March 11, 2025 Subjective Pt seen in follow up Status post irrigation and debridement right dorsal hand abscess. Overall feels well, denies any fever, chills, pain in the hand, says his hand did not really hurt prior to surgery but had visible pus drainage prior to surgery no chest pain, shortness of breath Review of Systems Review of Systems: All systems reviewed & are unremarkable except as noted in Subjective Physical Exam Physical Exam: General: no distress, obese M Head: normocephalic, atraumatic Eyes: conjunctiva non-injected, anicteric ENT: normal inspection external ears, nose, mucous membranes moist Neck: supple, non-tender Lungs: clear, no respiratory distress, no wheezing/rhonchi/rales CV: RRR, no murmur, no pretibial edema Abd: normal BS, soft, non-tender Ext: Right hand/fingers : +erythema and edema dorsal hand and 4th finger. +open wound purulent drainage with palpation.- per admitting provider, now s/p surgery, dressings clean dry/i Neuro: A&O x 3, no focal deficits noted, normal affect Skin: as above ext, otherwise warm, dry Results & Data Results & Data Vital Signs (Past 12 Hours) Vital Signs Temp Pulse Resp BP Pulse Ox O2 Del Method 03/16/25 14:56 36.6 C 85 16 118/71 96 Room Air 03/16/25 07:10 36.4 C L 80 16 132/81 93 Room Air Medications Administered Current Inpatient Medications Acetaminophen (Acetaminophen 325 Mg Tab) 650 mg PO Q4H PRN PRN Reason: pain/fever Stop: 04/10/25 18:06 Amlodipine Besylate (Amlodipine Besylate 5 Mg Tab) 2.5 mg PO DAILY VIV Stop: 04/11/25 08:59 Last Admin: 03/16/25 08:18 Dose: 2.5 mg Aripiprazole (Aripiprazole 5 Mg Tab) 5 mg PO HS VIV Stop: 04/10/25 20:59 Last Admin: 03/15/25 19:59 Dose: 5 mg Artificial Tears (Artificial Tears) 1 drops OP BID VIV Stop: 04/10/25 20:59 Last Admin: 03/16/25 08:15 Dose: Not Given Atorvastatin Calcium (Atorvastatin 40 Mg Tab) 80 mg PO HS [facility]IV Stop: 04/10/25 20:59 Last Admin: 03/15/25 19:59 Dose: 80 mg Baclofen (Baclofen 10 Mg Tab) 10 mg PO HS [facility]IV Stop: 04/10/25 20:59 Last Admin: 03/15/25 19:59 Dose: 10 mg Fluticasone Propionate (Fluticasone Propionate Na Spr 16 Gm Btl) 2 sprays GIL DAILY [facility]IV Stop: 04/11/25 08:59 Last Admin: 03/16/25 08:16 Dose: Not Given Fluticasone/Vilanterol (Fluticasone/Vilanterol 200/25mcg 14 Puffs/Inhaler) 1 puffs INH DAILY [facility]IV Stop: 04/11/25 08:59 Last Admin: 03/16/25 08:20 Dose: 1 puffs Gabapentin (Gabapentin 300 Mg Cap) 600 mg PO HS [facility]IV Stop: 04/10/25 20:59 Last Admin: 03/15/25 19:59 Dose: 600 mg Gabapentin (Gabapentin 300 Mg Cap) 300 mg PO BID@0900,1400 [facility] Stop: 04/11/25 08:59 Last Admin: 03/16/25 15:21 Dose: 300 mg Ampicillin Sodium/Sulbactam Sodium (Unasyn) 3,000 mg in 100 mls @ 200 mls/hr IV Q6H [facility]IV Stop: 04/22/25 18:06 Last Infusion: 03/16/25 13:10 Dose: Infused Lactobacillus Acidophilus (Advanced Probiotic 625 Mg Capsule) 1,250 mg PO DAILY [facility] Stop: 04/14/25 15:44 Last Admin: 03/16/25 11:52 Dose: 1,250 mg Lisinopril (Lisinopril 40 Mg Tab) 40 mg PO DAILY [facility]IV Stop: 04/11/25 08:59 Last Admin: 03/16/25 08:19 Dose: 40 mg Magnesium Hydroxide (Magnesium Hydroxide Susp 30 Ml Udc) 30 ml PO Q6H PRN PRN Reason: Constipation Stop: 04/10/25 18:06 Metoprolol Tartrate (Metoprolol Tartrate 25 Mg Tab) 12.5 mg PO BID [facility]IV Stop: 04/10/25 20:59 Last Admin: 03/16/25 08:20 Dose: 12.5 mg Morphine Sulfate (Morphine Sulfate 4 Mg/Ml 1 Ml Carp\Vial) 3 mg IV Q4H PRN PRN Reason: Severe Pain (Scale 7, 8, 9,10) Stop: 03/25/25 18:06 Ondansetron HCl (Ondansetron Inj 2 Mg/Ml 2 Ml Vial) 4 mg IV Q6H PRN PRN Reason: Nausea Stop: 04/10/25 18:06 Oxycodone HCl (Oxycodone Hcl Ir 5 Mg Tab (Immediate Release)) 5 mg PO Q6H PRN PRN Reason: Moderate Pain (Scale 4, 5, 6) Stop: 03/25/25 18:06 Polyethylene Glycol (Polyethylene (Miralax) 17 Gm Pack) 17 gm PO DAILY PRN PRN Reason: Constipation Stop: 04/10/25 18:06 Prazosin HCl (Prazosin Hcl 1 Mg Cap) 1 mg PO HS [facility] Stop: 04/10/25 20:59 Last Admin: 03/15/25 20:00 Dose: 1 mg Venlafaxine HCl (Venlafaxine Hcl Xr 75 Mg Capxr) 225 mg PO DAILY [facility]IV Stop: 04/11/25 08:59 Last Admin: 03/16/25 08:19 Dose: 225 mg Vitamin D (Cholecalciferol 25 Mcg (1000 Units) Tab) 25 mcg PO DAILY [facility]IV Stop: 04/11/25 08:59 Last Admin: 03/16/25 08:19 Dose: 25 mcg
--- NOTE | 2025-03-17 15:30 | Hospitalist Progress Note ---
Date of Service March 17, 2025 Assessment & Plan (1) Cellulitis of right hand: (2) Abscess of right hand: (3) Cat bite: Plan: Septic arthritis Patient is 69-year-old male with PMH HTN, HLD, prediabetes, reactive airway, KEVIN, PTSD, chronic pain, obesity presented to ER with c/o Right hand redness. Patient reports his cat bite his right hand 9 days ago, failed outpatient course of Augmentin In ER afebrile, vital stable. WBC: 13.5 with left shift Right CT hand: 1. Cellulitis with 5 cm probable abscess of the dorsal hand with involvement of the fourth extensor compartment suggestive of associated infectious tenosynovitis. 2. Osteoarthritis without acute osseous abnormality. In ER given Unasyn Wound culture pending Keep NPO for likely surgical procedure later today Ortho consult, ER physician spoke to Dr Ashford who recommended NPO for OR later today CBC, BMP in am 03/12 wound cultx positive for Pasteurella multocida - final results pending Pt is s/p I&D on 03/11/2025. Per orthopedics - status post irrigation and debridement and exploration of right hand. During surgery, the patient was discovered to have an extensor tendon rupture. I did call and discussed this with my hand surgery colleague, Dr. Capone. He recommended staged reconstruction in the future. We will continue to follow cultures to determine appropriate antibiotic plan. Consider infectious disease consultation. 03/13 ID consulted and discussed with - Septic arthritis - possibly IV abx , will need to check with insurance -> CM involved 03/17 [place] approved iv abx, consented to PICC line, likely DC tmrw w/ IV abx (4) HTN (hypertension): Plan: Hold HCTZ, continue lisinopril. Continue amlodipine, metoprolol tartrate with holding parameters monitor BP (5) HLD (hyperlipidemia): Plan: Continue atorvastatin (6) Reactive airway disease: Plan: No signs exacerbation Continue home inhalers (7) KEVIN (obstructive sleep apnea): Plan: CPAP HS (8) Chronic pain: Plan: Continue gabapentin, baclofen DVT Prophylaxis SCDs for now as pending surgery Dispo: med surg Full Code as per discussion with pt Follows [facility] for routine care Admission and Anticipated Discharge Date Admission Date: March 11, 2025 Subjective Pt seen in follow up Status post irrigation and debridement right dorsal hand abscess. Overall feels well, denies any fever, chills, pain in the hand, says his hand did not really hurt prior to surgery but had visible pus drainage prior to surgery no chest pain, shortness of breath [place] iv abx on [place] - consented to PICC line. Plan to DC tmrw - CM involved Review of Systems Review of Systems: All systems reviewed & are unremarkable except as noted in Subjective Physical Exam Physical Exam: General: no distress, obese M Head: normocephalic, atraumatic ENT: normal inspection external ears, nose, mucous membranes moist Neck: supple, non-tender Lungs: clear, no respiratory distress, no wheezing/rhonchi/rales CV: RRR, no murmur, no pretibial edema Abd: normal BS, soft, non-tender Ext: Right hand/fingers : +erythema and edema dorsal hand and 4th finger. +open wound purulent drainage with palpation.- per admitting provider, now s/p surgery, dressings clean dry/i Neuro: A&O x 3, no focal deficits noted, normal affect Skin: as above ext, otherwise warm, dry Results & Data Results & Data Vital Signs (Past 12 Hours) Vital Signs Temp Pulse Resp BP Pulse Ox O2 Del Method 03/17/25 07:15 36.4 C L 77 16 150/85 H 95 Room Air Medications Administered Current Inpatient Medications Acetaminophen (Acetaminophen 325 Mg Tab) 650 mg PO Q4H PRN PRN Reason: pain/fever Stop: 04/10/25 18:06 Amlodipine Besylate (Amlodipine Besylate 5 Mg Tab) 2.5 mg PO DAILY VIV Stop: 04/11/25 08:59 Last Admin: 03/17/25 07:59 Dose: 2.5 mg Aripiprazole (Aripiprazole 5 Mg Tab) 5 mg PO HS VIV Stop: 04/10/25 20:59 Last Admin: 03/16/25 20:55 Dose: 5 mg Artificial Tears (Artificial Tears) 1 drops OP BID VIV Stop: 04/10/25 20:59 Last Admin: 03/17/25 07:54 Dose: Not Given Atorvastatin Calcium (Atorvastatin 40 Mg Tab) 80 mg PO HS VIV Stop: 04/10/25 20:59 Last Admin: 03/16/25 20:56 Dose: 80 mg Baclofen (Baclofen 10 Mg Tab) 10 mg PO HS VIV Stop: 04/10/25 20:59 Last Admin: 03/16/25 20:56 Dose: 10 mg Fluticasone Propionate (Fluticasone Propionate Na Spr 16 Gm Btl) 2 sprays GIL DAILY VIV Stop: 04/11/25 08:59 Last Admin: 03/17/25 07:54 Dose: Not Given Fluticasone/Vilanterol (Fluticasone/Vilanterol 200/25mcg 14 Puffs/Inhaler) 1 puffs INH DAILY VIV Stop: 04/11/25 08:59 Last Admin: 03/17/25 07:59 Dose: 1 puffs Gabapentin (Gabapentin 300 Mg Cap) 600 mg PO HS VIV Stop: 04/10/25 20:59 Last Admin: 03/16/25 20:56 Dose: 600 mg Gabapentin (Gabapentin 300 Mg Cap) 300 mg PO BID@0900,1400 VIV Stop: 04/11/25 08:59 Last Admin: 03/17/25 13:10 Dose: 300 mg Ampicillin Sodium/Sulbactam Sodium (Unasyn) 3,000 mg in 100 mls @ 200 mls/hr IV Q6H VIV Stop: 04/22/25 18:06 Last Infusion: 03/17/25 13:54 Dose: Infused Lactobacillus Acidophilus (Advanced Probiotic 625 Mg Capsule) 1,250 mg PO DAILY ON LICENSE OF [facility] Stop: 04/14/25 15:44 Last Admin: 03/17/25 07:59 Dose: 1,250 mg Lisinopril (Lisinopril 40 Mg Tab) 40 mg PO DAILY VIV Stop: 04/11/25 08:59 Last Admin: 03/17/25 07:59 Dose: 40 mg Magnesium Hydroxide (Magnesium Hydroxide Susp 30 Ml Udc) 30 ml PO Q6H PRN PRN Reason: Constipation Stop: 04/10/25 18:06 Metoprolol Tartrate (Metoprolol Tartrate 25 Mg Tab) 12.5 mg PO BID VIV Stop: 04/10/25 20:59 Last Admin: 03/17/25 07:59 Dose: 12.5 mg Morphine Sulfate (Morphine Sulfate 4 Mg/Ml 1 Ml Carp\Vial) 3 mg IV Q4H PRN PRN Reason: Severe Pain (Scale 7, 8, 9,10) Stop: 03/25/25 18:06 Ondansetron HCl (Ondansetron Inj 2 Mg/Ml 2 Ml Vial) 4 mg IV Q6H PRN PRN Reason: Nausea Stop: 04/10/25 18:06 Oxycodone HCl (Oxycodone Hcl Ir 5 Mg Tab (Immediate Release)) 5 mg PO Q6H PRN PRN Reason: Moderate Pain (Scale 4, 5, 6) Stop: 03/25/25 18:06 Polyethylene Glycol (Polyethylene (Miralax) 17 Gm Pack) 17 gm PO DAILY PRN PRN Reason: Constipation Stop: 04/10/25 18:06 Prazosin HCl (Prazosin Hcl 1 Mg Cap) 1 mg PO HS VIV Stop: 04/10/25 20:59 Last Admin: 03/16/25 20:56 Dose: 1 mg Venlafaxine HCl (Venlafaxine Hcl Xr 75 Mg Capxr) 225 mg PO DAILY VIV Stop: 04/11/25 08:59 Last Admin: 03/17/25 07:59 Dose: 225 mg Vitamin D (Cholecalciferol 25 Mcg (1000 Units) Tab) 25 mcg PO DAILY VIV Stop: 04/11/25 08:59 Last Admin: 03/17/25 07:59 Dose: 25 mcg
--- NOTE | 2025-03-18 14:10 | Hospitalist Progress Note ---
Date of Service March 18, 2025 Assessment & Plan (1) Cellulitis of right hand: (2) Abscess of right hand: (3) Cat bite: Plan: Patient is 69-year-old male with PMH HTN, HLD, prediabetes, reactive airway, KEVIN, PTSD, chronic pain, obesity presented to ER with c/o Right hand redness. Patient reports his cat bite his right hand 9 days ago, failed outpatient course of Augmentin Septic arthritis Right hand cellulitis/abscess Infectious tenosynovitis--POA Rupture of extensor tendon thought to be secondary to infection--POA Secondary to cat bite --Right CT hand: Cellulitis with 5 cm probable abscess of the dorsal hand with involvement of the fourth extensor compartment suggestive of associated infectious tenosynovitis. Osteoarthritis without acute osseous abnormality. --S/P right hand incision and debridement metacarpal phalangeal joint septic arthritis by Dr. Ashford on 03/11/2025 --Wound culture grew Pasteurella multocida, bacteroids pyogenous --Appreciate orthopedics input Patient needs to follow-up with Dr. Shine for wound check next week and to discuss for staged reconstruction once infection is cleared Currently not requiring any pain medications Appreciate infectious disease input--plan to continue IV Unasyn for 6 weeks--end date April 22, 2025 PICC line placed Plan to discharge home today (4) HTN (hypertension): Plan: Continue amlodipine, metoprolol tartrate, lisinopril Resume HCTZ as able Monitor blood pressure (5) HLD (hyperlipidemia): Plan: Continue atorvastatin (6) Reactive airway disease: Plan: No signs exacerbation Continue home inhalers (7) KEVIN (obstructive sleep apnea): Plan: CPAP HS (8) Chronic pain: Plan: Continue gabapentin, baclofen DVT Px: SCDs CODE STATUS Full Code Disposition Home Admission and Anticipated Discharge Date Admission Date: March 11, 2025 Subjective Patient is seen and examined at bedside Denies any right hand pain Offers no new complaints today Admits to have intermittent diarrhea, denies any diarrhea today Also denies any chest pain, dyspnea, nausea, vomiting, abdominal pain Plan to be discharged home today Review of Systems Review of Systems: All systems reviewed & are unremarkable except as noted in Subjective Physical Exam Physical Exam: Physical Exam: Vitals signs as noted above General Appearance:Obese, no apparent distress Head: normocephalic, Atraumatic Eyes: normal inspection, EOMI Neck: supple, Trachea midline Respiratory/Chest: Normal breath sounds, CTA, No accessory muscle use Cardiovascular: S1, S2, No murmur Abdomen/GI:Soft, Non tender, Bowel sounds present Extremities/Musculoskeletal:normal inspection, no pedal edema, R hand in dressing/splint Neurologic/Psych:AAOX3, grossly no focal neurological deficits Skin: normal color, warm Results & Data Results & Data Vital Signs (Past 12 Hours) Vital Signs Temp Pulse Resp BP Pulse Ox O2 Del Method 03/18/25 09:12 127/84 03/18/25 06:30 36.4 C L 85 16 132/84 96 Room Air
--- NOTE | 2025-03-18 14:29 | Discharge Summary ---
Date of Service March 18, 2025 Admission HPI Per Admitting Provider Patient is 69-year-old male with PMH HTN, HLD, prediabetes, reactive airway, KEVIN, PTSD, chronic pain, obesity presented to ER with c/o Right hand redness. Patient reports his cat bite his right hand 9 days ago. Reports was seen at [facility] 8 days ago and started on Augmentin. He states he filled out animal bite form there. He reports his cat up to date on vaccines. He states his tetanus booster was updated 8 days ago. Patient reports hand does not seem to be improving and having pain, redness and noted purulent drainage. Last ate yesterday afternoon. Did not have home meds today. Denies fever/chills, diaph oresis, N/V/D/C, SEGUNDO, dizziness, CP, SOB, cough, sore throat, rhinorrhea, abdominal pain, paresthesias, lower extremity edema, other rashes, urinary symptoms. Admission Exam Per Admitting Provider General: no distress, obese Head: normocephalic, atraumatic Eyes: conjunctiva non-injected, anicteric ENT: normal inspection external ears, nose, mucous membranes moist Neck: supple, trachea midline, non-tender Lungs: clear, no respiratory distress, no wheezing/rhonchi/rales CV: RRR, no murmur, no pretibial edema Abd: normal BS, soft, non-tender Ext: no cyanosis, no calf tenderness. Right hand/fingers : +erythema and edema dorsal hand and 4th finger. +open wound purulent drainage with palpation. Neuro: A&O x 3, no focal deficits noted, normal affect Skin: as above ext, otherwise warm, dry Principal Diagnosis Septic arthritis Right hand cellulitis/abscess Infectious tenosynovitis--POA Rupture of extensor tendon thought to be secondary to infection--POA Cat bite Discharge Data Allergies Allergy/AdvReac Type Severity Reaction Status Date / Time No Known Allergies Allergy Unknown Unverified 10/07/07 09:19 Consultations 03/11/25 13:29 ED Decision to Admit Stat 03/11/25 13:30 Consult Orthopedic Surgery Stat 03/12/25 08:41 Consult Infectious Diseases Routine Procedures Performed Operation Date: 03/11/25 12:00 Actual Procedures p Right Hand Incision and Debridement Metacarpal Phalangeal Joint Septic Arthritis(Right) - Huber Ashford DO Ordered Studies Laboratory Results WBC 8.25 K/ul (4.8-10.8) 03/15/25 05:54 RBC 4.01 M/uL (4.70-6.10) L 03/15/25 05:54 Hgb 13.5 g/dl (14.0-18.0) L 03/15/25 05:54 Hct 38.6 % (42.0-52.0) L 03/15/25 05:54 MCV 96.3 fL (80.0-100.0) 03/15/25 05:54 MCH 33.7 pg (25.0-34.0) 03/15/25 05:54 MCHC 35.0 g/dL (32.0-36.0) 03/15/25 05:54 RDW Std Deviation 43.4 fL (36.4-46.3) 03/15/25 05:54 RDW Coeff of Steve 12.2 % (11.5-14.5) 03/15/25 05:54 Plt Count 283 K/uL (130-400) 03/15/25 05:54 MPV 9.4 fL (9.4-12.4) 03/15/25 05:54 Immature Gran % (Auto) 0.7 % 03/12/25 06:01 Neut % (Auto) 78.3 % 03/12/25 06:01 Lymph % (Auto) 14.6 % 03/12/25 06:01 Woodruff % (Auto) 5.8 % 03/12/25 06:01 Eos % (Auto) 0.4 % 03/12/25 06:01 Baso % (Auto) 0.2 % 03/12/25 06:01 Neut # (Auto) 10.72 K/uL (1.40-6.50) H 03/12/25 06:01 Lymph # (Auto) 2.00 K/uL (1.20-3.40) 03/12/25 06:01 Woodruff # (Auto) 0.79 K/uL (0.11-0.59) H 03/12/25 06:01 Eos # (Auto) 0.05 K/uL (0.00-0.50) 03/12/25 06:01 Baso # (Auto) 0.03 K/uL (0.00-0.20) 03/12/25 06:01 Immature Gran # (Auto) 0.09 K/uL (0.01-0.20) 03/12/25 06:01 ESR 26 mm/hr (0-20) H 03/11/25 11:32 Sodium 139 mmol/L (136-145) 03/15/25 05:54 Potassium 3.7 mmol/L (3.5-5.1) 03/15/25 05:54 Chloride 109 mmol/L (98-107) H 03/15/25 05:54 Carbon Dioxide 24 mmol/L (21-32) 03/15/25 05:54 Anion Gap 6 (3-11) 03/15/25 05:54 BUN 16 mg/dl (6-23) 03/15/25 05:54 Creatinine 0.93 mg/dl (0.6-1.4) 03/15/25 05:54 Est Cr Clr Drug Dosing 77.1 ml/min 03/15/25 05:54 eGFR 88.89 03/15/25 05:54 BUN/Creatinine Ratio 17.2 (10-20) 03/15/25 05:54 Glucose 116 mg/dl (70-99(Fasting)) H 03/15/25 05:54 Calcium 8.6 mg/dl (8.6-10.3) 03/15/25 05:54 Phosphorus 3.0 mg/dl (2.5-4.9) 03/15/25 05:54 Magnesium 2.1 mg/dl (1.7-2.4) 03/15/25 05:54 Total Bilirubin 0.5 mg/dl (0.2-1.0) 03/11/25 11:32 AST 20 U/L (13-39) 03/11/25 11:32 ALT 12 U/L (7-52) 03/11/25 11:32 Alkaline Phosphatase 83 U/L (34-104) 03/11/25 11:32 C-Reactive Protein 0.65 mg/dl (0-0.5) H 03/11/25 11:32 C-Reactive Protein Cancelled 03/11/25 11:32 Total Protein 6.9 gm/dl (6.0-8.3) 03/11/25 11:32 Albumin 3.9 gm/dl (3.4-5.0) 03/11/25 11:32 Globulin 3.0 gm/dl (2.5-4.0) 03/11/25 11:32 Albumin/Globulin Ratio 1.3 (0.9-2) 03/11/25 11:[address] 03/11/25 11:23 CT hand RT w con HISTORY: 69 years-old Male poss abscess dorsal 4th mcp acute right hand pain with possible soft tissue infection and abscess COMPARISON: None TECHNIQUE: Multiple axial CT images of the right hand were obtained with IV contrast. A dose lowering technique was used consistent with the principals of JOE. FINDINGS: Multifocal osteoarthritis, severe within the first carpal metacarpal joint in otherwise predominantly mild to moderate. Healed chronic chest metacarpal fracture deformity. No acute fracture, dislocation or osseous erosion. Tendons and ligaments are not well evaluated by CT technique. Moderate subcutaneous edema is most pronounced dorsally. Ill-defined peripherally enhancing fluid collection is noted along the dorsal aspect of the fourth metacarpal and fourth metacarpophalangeal joint (image 25 series 3 image 64 series 303) measuring 2.0 x 0.8 x 5.0 cm. This appears to involve the fourth extensor compartment. IMPRESSION: 1. Cellulitis with 5 cm probable abscess of the dorsal hand with involvement of the fourth extensor compartment suggestive of associated infectious tenosynovitis. 2. Osteoarthritis without acute osseous abnormality. ACT 112: Negative or not required by law. The above report was generated using voice recognition software. It may contain grammatical, syntax or spelling errors. Electronically signed by: Mendez Avitia M.D. 03/11/2025 1:07 PM Hospital Course (1) Cellulitis of right hand: (2) Abscess of right hand: (3) Cat bite: Patient is 69-year-old male with PMH HTN, HLD, prediabetes, reactive airway, KEVIN, PTSD, chronic pain, obesity presented to ER with c/o Right hand redness. Patient reports his cat bite his right hand 9 days ago, failed outpatient course of Augmentin Septic arthritis Right hand cellulitis/abscess Infectious tenosynovitis--POA Rupture of extensor tendon thought to be secondary to infection--POA Secondary to cat bite --Right CT hand: Cellulitis with 5 cm probable abscess of the dorsal hand with involvement of the fourth extensor compartment suggestive of associated infectious tenosynovitis. Osteoarthritis without acute osseous abnormality. --S/P right hand incision and debridement metacarpal phalangeal joint septic arthritis by Dr. Ashford on 03/11/2025 --Wound culture grew Pasteurella multocida, bacteroids pyogenous --Appreciate orthopedics input Patient needs to follow-up with Dr. Shine for wound check next week and to discuss for staged reconstruction once infection is cleared Currently not requiring any pain medications Appreciate infectious disease input--plan to continue IV Unasyn for 6 weeks--end date April 22, 2025 PICC line placed Plan to discharge home today (4) HTN (hypertension): Continue amlodipine, metoprolol tartrate, lisinopril Resume HCTZ as able Monitor blood pressure (5) HLD (hyperlipidemia): Continue atorvastatin (6) Reactive airway disease: No signs exacerbation Continue home inhalers (7) KEVIN (obstructive sleep apnea): CPAP HS (8) Chronic pain: Continue gabapentin, baclofen DVT Px: SCDs CODE STATUS Full Code Disposition Home Total Time Total Time Spent Total Time Spent (In Minutes): 52 minutes Discharge Plan Discharge Items Patient Disposition: Home - Home Health Services Reason For Visit: HAND ABSCESS CELLULITIS Discharge Diagnosis: Septic arthritis Right hand cellulitis/abscess Infectious tenosynovitis--POA Rupture of extensor tendon thought to be secondary to infection--POA Cat bite Condition on Discharge: Good Activity: Per Instructions section Exercise/Sports: Wait until after follow-up appointment Non-emergency contact: Primary Care Provider and Surgeon Call non-emergency contact if: you have any medication questions, your symptoms worsen, your pain is concerning for you and you have a fever Follow-up/Referrals: Marc Capone MD [Physician] - (The office will call you with an appointment with Dr. Capone.) [facility] [Non-Staff] - (The office will call you for a follow up appointment.) Marc Nieto DO [Primary Care Provider] - Diet: Regular Addtl Attending Provider Instructions: --Follow-up with your primary care physician at [facility] in 1 week as advised --Follow-up with your orthopedic surgeon in 1 week as advised for wound check and to discuss regarding staged reconstruction -- Continue IV Unasyn 3 g every 6 hours until April 22, 2025 as recommended by your infectious disease specialist. -- Avoid driving/using heavy machinery until cleared by your orthopedic surgeon. Seek immediate medical attention if your symptoms reoccur or worsen Please review medication list provided on discharge for any medication changes as instructed. Please call if you have any questions or problems. You can reach a [facility] hospitalist on duty at [facility] 24 hours a day by calling [phone] Pending Studies at Discharge: No Stand-Alone Forms: My [facility], Smoking Cessation Medications and DC Order Prescriptions: New Advanced Probiotic 625 mg (10 billion cell) Capsule 1 cap PO DAILY Qty: 60 0RF ampicillin sodium 2 gram recon soln 3 g IV Q6H Continued multivitamin [Multi-Vitamin] Tablet 1 tab PO DAILY terbinafine HCl 1 % Cream 1 applic TOPICAL BID atorvastatin 80 mg Tablet 80 mg PO HS venlafaxine 75 mg Tablet 225 mg PO DAILY Rx Instructions: take 3 caps to equal 225mg dose donepezil 5 mg Tablet 5 mg PO BID urea 20 % Cream 1 applic TOPICAL DAILY PRN (Reason: Dry Skin) prazosin 1 mg Capsule 1 mg PO HS meloxicam 15 mg Tablet 15 mg PO DAILY PRN (Reason: Other) amlodipine 2.5 mg Tablet 2.5 mg PO DAILY aspirin [Aspir-81] 81 mg Tablet,Delayed Release (Dr/Ec) 81 mg PO DAILY triamcinolone acetonide 0.025 % Cream 1 applic TOPICAL UD PRN (Reason: Other) carboxymethylcellulose sodium 0.5 % Drops 1 drp OPHTHALMIC (EYE) BID baclofen 10 mg Tablet 10 mg PO HS cyanocobalamin (vitamin B-12) 1,000 mcg/mL Solution 1,000 mcg IM MONTHLY fluticasone propion-salmeterol 500-50 mcg/dose Blister With Device 1 inh INHALATION BID gabapentin 300 mg Capsule 300 mg PO BID Rx Instructions: 1 cap AM and 1 cap noon gabapentin 300 mg Capsule 600 mg PO HS hydrochlorothiazide 25 mg Tablet 12.5 mg PO DAILY doxylamine succinate 25 mg Tablet 25 mg PO HS PRN (Reason: Sleep) albuterol sulfate 90 mcg/actuation Hfa Aerosol Inhaler 2 puff INHALATION Q4H PRN (Reason: sob/cough/wheeze) lisinopril 40 mg Tablet 40 mg PO DAILY fluticasone propionate [Flonase] 50 mcg/actuation [place],Suspension 2 spray INTRANASAL DAILY Rx Instructions: administer into each nostril aripiprazole 5 mg Tablet 5 mg PO HS metoprolol tartrate 25 mg Tablet 12.5 mg PO BID cholecalciferol (vitamin D3) 25 mcg (1,000 unit) Tablet 25 mcg PO DAILY diclofenac sodium 1 % Gel 2 g TOPICAL QID Rx Instructions: apply to single knee, ankle, foot; for foot includes sole/toes/top of foot semaglutide (weight loss) 1.7 mg/0.75 mL Pen Injector 1.7 mg SUBCUT Q7D fish oil-dha-epa 1,000 mg PO DAILY Discharge Orders: Discharge Order (Routine); Ordered 03/18/25 Ordered By: Serjio Ho Admission Data Admit Date/Time: 03/11/25 13:49 Attending Provider: Serjio Ho Admit Provider: Mima Gomez Primary Care Provider: Marc Nieto Other Providers: Mima Gomez; Huber Ashford; Joaquín Vinson; Jung Botello; Ga Cevallos I.; Luis Don II; Nicolasa Ramos; Db Rivas; Lyle Oh; Phuc Armstrong; [facility],Hospital; [facility]; [facility]
== END 2025-03-18 16:12 | disposition home health service (06) | DRG 513 ==
LOC: ED 10:23 → SUATTDRO 13:49 → 3E 13:49